=== PATIENT | female | born 1980 | race Caucasian/White ===

== ENCOUNTER 2016-05-28 15:05 | Emergency (ER) | payer BC ==
[2016-05-28 15:31] VITALS: RESP 18
[2016-05-28] MEDS ORDERED: FAMOTIDINE 20 MG/2 ML VIAL IV STA (15:46)
[2016-05-28] MEDS ORDERED: SODIUM CHLORIDE 0.9% 1,000 ML IV STA (15:46)
[2016-05-28] MEDS ORDERED: ONDANSETRON 4 MG/2 ML VIAL IVP STA (15:46)
--- NOTE | 2016-05-28 15:48 | ED ---
General Adult HPI - General Chief complaint: Abdominal Pain Stated complaint: left side abdominal pain Time Seen by Provider: 05/28/16 15:40 Source: patient, RN notes reviewed Mode of arrival: ambulatory Limitations: no limitations - History of Present Illness Initial comments: Patient a 35-year-old female who presents emergency room today with a chief complaint of left upper quadrant pain 2 weeks. She describes it as a sharp type pain located left upper quadrant that is worse after eating. States worse when she lays down. Patient does admit to a history of cholecystectomy. Admits to nausea. She denies any other complaints associated symptoms. Patient denies any recent fever, chills, shortness of breath, chest pain, back pain, vomiting, numbness or tingling, dysuria or hematuria, constipation or diarrhea, headaches or visual changes, or any other complaints. - Related Data Home Medications Medication Instructions Recorded Confirmed Ibuprofen [Motrin] 800 mg PO Q8HR PRN 02/28/15 05/28/16 clonazePAM [KlonoPIN] 1 mg PO DAILY PRN 02/28/15 05/28/16 Estradiol [Estrace] 1 mg PO DAILY 05/28/16 05/28/16 HYDROcodone/APAP 5-325MG [[place] 1 tab PO DAILY PRN 05/28/16 05/28/16 5-325] Previous Rx's Medication Instructions Recorded Omeprazole 20 mg PO DAILY 14 Days 05/28/16 Allergies Allergy/AdvReac Type Severity Reaction Status Date / Time adhesive AdvReac Rash/Hives Verified 05/28/16 15:38 Anesthetics - Katie Type- AdvReac Itching Verified 05/28/16 15:38 Parabens [Anesthetics - Katie Type] diclofenac sodium AdvReac Rash/Hives Verified 05/28/16 15:38 [From Voltaren] erythromycin lactobionate AdvReac Rash/Hives Verified 05/28/16 15:38 [From Erythrocin] Iodinated Contrast Media - AdvReac Rash/Hives Verified 05/28/16 15:38 Oral and [Iodinated Contrast Media - IV Dye] Review of Systems ROS Statement: Those systems with pertinent positive or pertinent negative responses have been documented in the HPI. ROS Other: All systems not noted in ROS Statement are negative. Past Medical History Past Medical History: Fibromyalgia History of Any Multi-Drug Resistant Organisms: None Reported Past Surgical History: Cholecystectomy, Hysterectomy, Orthopedic Surgery Additional Past Surgical History / Comment(s): right shoulder, right foot, left Oopherectomy, left shoulder Past Anesthesia/Blood Transfusion Reactions: No Reported Reaction Past Psychological History: Anxiety Smoking Status: Former smoker Past Alcohol Use History: None Reported Past Drug Use History: None Reported - Past Family History Mother Family Medical History: No Reported History General Exam - General Exam Comments Initial Comments: General: The patient is awake and alert, in no distress, and does not appear acutely ill. Eye: Pupils are equal, round and reactive to light, extra-ocular movements are intact. No nystagmus. There is normal conjunctiva bilaterally. No signs of icterus. Ears, nose, mouth and throat: There are moist mucous membranes and no oral lesions. Neck: The neck is supple, there is no tenderness or JVD. Cardiovascular: There is a regular rate and rhythm. No murmur, rub or gallop is appreciated. Respiratory: Lungs are clear to auscultation, respirations are non-labored, breath sounds are equal. No wheezes, stridor, rales, or rhonchi. Gastrointestinal: Normal exam. Normal bowel sounds. Abdomen soft on palpation. Patient does have mild tenderness in the epigastric and left upper quadrants. No rebound tenderness. No guarding. No CVA tenderness. Musculoskeletal: Normal ROM, no tenderness. Strength 5/5. Sensation intact. Pulses equal bilaterally 2+. Neurological: A&O x 3. CN II-XII intact, There are no obvious motor or sensory deficits. Coordination appears grossly intact. Speech is normal. Skin: Skin is warm and dry and no rashes or lesions are noted. Psychiatric: Cooperative, appropriate mood & affect, normal judgment. Limitations: no limitations Course Vital Signs 05/28/16 15:26 Temperature 98.0 F Pulse Rate 74 Respiratory 18 Rate Blood Pressure 97/73 O2 Sat by Pulse 100 Oximetry Medical Decision Making - Medical Decision Making Patient's labs reviewed and are unremarkable. Results were discussed with the patient. She declined IV in IV medications. Patient will be discharged home and advised to follow-up with the family doctor. She'll be started on omeprazole to cover for possible ulcer. Signs and symptoms of return were discussed with the patient. Advised follow-up the family doctor or return if any symptoms increase or worsen. Patient states understanding and is in agreement. - Lab Data Result diagrams: 05/28/16 15:53 05/28/16 15:53 Lab Results 05/28/16 05/28/16 05/28/16 Range/Units 15:53 15:53 15:59 WBC 6.2 (3.8-10.6) k/uL RBC 4.66 (3.80-5.40) m/uL Hgb 13.9 (11.4-16.0) gm/dL Hct 43.1 (34.0-46.0) % MCV 92.4 (80.0-100.0) fL MCH 29.7 (25.0-35.0) pg MCHC 32.2 (31.0-37.0) g/dL RDW 12.0 (11.5-15.5) % Plt Count 210 (150-450) k/uL Neutrophils % 51 % Lymphocytes % 39 % Monocytes % 5 % Eosinophils % 2 % Basophils % 1 % Neutrophils # 3.1 (1.3-7.7) k/uL Lymphocytes # 2.4 (1.0-4.8) k/uL Monocytes # 0.3 (0-1.0) k/uL Eosinophils # 0.1 (0-0.7) k/uL Basophils # 0.0 (0-0.2) k/uL Sodium 141 (137-145) mmol/L Potassium 4.1 (3.5-5.1) mmol/L Chloride 106 (98-107) mmol/L Carbon Dioxide 24 (22-30) mmol/L Anion Gap 11 mmol/L BUN 12 (7-17) mg/dL Creatinine 0.74 (0.52-1.04) mg/dL Est GFR (MDRD) Af Amer >60 (>60 ml/min/1.73 sqM) Est GFR (MDRD) Non-Af >60 (>60 ml/min/1.73 sqM) Glucose 91 (74-99) mg/dL Calcium 9.1 (8.4-10.2) mg/dL Total Bilirubin 0.5 (0.2-1.3) mg/dL AST 17 (14-36) U/L ALT 32 (9-52) U/L Alkaline Phosphatase 69 (38-126) U/L Total Protein 7.3 (6.3-8.2) g/dL Albumin 4.3 (3.5-5.0) g/dL Amylase 67 (30-110) U/L Lipase 67 (23-300) U/L Urine Color Urine Appearance (Clear) Urine pH (5.0-8.0) Ur Specific [place] (1.001-1.035) Urine Protein (Negative) Urine Glucose (UA) (Negative) Urine Ketones (Negative) Urine Blood (Negative) Urine Nitrate (Negative) Urine Bilirubin (Negative) Urine Urobilinogen (<2.0) mg/dL Ur Leukocyte Esterase (Negative) Urine RBC (0-5) /hpf Urine WBC (0-5) /hpf Ur Squamous Epith Cells (0-4) /hpf Urine Bacteria (None) /hpf Urine Mucus (None) /hpf Urine HCG, Qual Not Detected (Not Detectd) 05/28/16 Range/Units 15:59 WBC (3.8-10.6) k/uL RBC (3.80-5.40) m/uL Hgb (11.4-16.0) gm/dL Hct (34.0-46.0) % MCV (80.0-100.0) fL MCH (25.0-35.0) pg MCHC (31.0-37.0) g/dL RDW (11.5-15.5) % Plt Count (150-450) k/uL Neutrophils % % Lymphocytes % % Monocytes % % Eosinophils % % Basophils % % Neutrophils # (1.3-7.7) k/uL Lymphocytes # (1.0-4.8) k/uL Monocytes # (0-1.0) k/uL Eosinophils # (0-0.7) k/uL Basophils # (0-0.2) k/uL Sodium (137-145) mmol/L Potassium (3.5-5.1) mmol/L Chloride (98-107) mmol/L Carbon Dioxide (22-30) mmol/L Anion Gap mmol/L BUN (7-17) mg/dL Creatinine (0.52-1.04) mg/dL Est GFR (MDRD) Af Amer (>60 ml/min/1.73 sqM) Est GFR (MDRD) Non-Af (>60 ml/min/1.73 sqM) Glucose (74-99) mg/dL Calcium (8.4-10.2) mg/dL Total Bilirubin (0.2-1.3) mg/dL AST (14-36) U/L ALT (9-52) U/L Alkaline Phosphatase (38-126) U/L Total Protein (6.3-8.2) g/dL Albumin (3.5-5.0) g/dL Amylase (30-110) U/L Lipase (23-300) U/L Urine Color Yellow Urine Appearance Cloudy H (Clear) Urine pH 5.5 (5.0-8.0) Ur Specific [place] 1.018 (1.001-1.035) Urine Protein Negative (Negative) Urine Glucose (UA) Negative (Negative) Urine Ketones Negative (Negative) Urine Blood Trace H (Negative) Urine Nitrate Negative (Negative) Urine Bilirubin Negative (Negative) Urine Urobilinogen <2.0 (<2.0) mg/dL Ur Leukocyte Esterase Negative (Negative) Urine RBC 1 (0-5) /hpf Urine WBC 1 (0-5) /hpf Ur Squamous Epith Cells 9 H (0-4) /hpf Urine Bacteria Rare H (None) /hpf Urine Mucus Few H (None) /hpf Urine HCG, Qual (Not Detectd) Disposition Clinical Impression: Abdominal pain Disposition: HOME SELF-CARE Condition: Good Instructions: Abdominal Pain (ED) Additional Instructions: Please use medication as discussed. Please follow-up with family doctor in the next 2 days. Please return to emergency room if the symptoms increase or worsen or for any other concerns. Prescriptions: Omeprazole 20 mg PO DAILY 14 Days Time of Disposition: 16:24
[2016-05-28 16:07] LABS: Basophils % (A) 1 %; CH 31.2; CHCM 33.9; Eosinophils # (A) 0.1 k/uL (0-0.7); Eosinophils % (A) 2 %; HCT 43.1 % (34.0-46.0); HDW 2.49; HGB 13.9 gm/dL (11.4-16.0); Luc # (Auto) 0.12; Luc % (Auto) 2; Lymphocytes # (A) 2.4 k/uL (1.0-4.8); Lymphocytes % (A) 39 %; MCH 29.7 pg (25.0-35.0); MCHC 32.2 g/dL (31.0-37.0); MCV 92.4 fL (80.0-100.0); Monocytes # (A) 0.3 k/uL (0-1.0); Monocytes % (A) 5 %; Neutrophils # (A) 3.1 k/uL (1.3-7.7); Neutrophils % (A) 51 %; RBC 4.66 m/uL (3.80-5.40); WBC 6.2 k/uL (3.8-10.6)
[2016-05-28 16:11] LABS: Appearance,Urine Cloudy (Clear); Bacteria,Urine Rare /hpf; Bilirubin,Urine Negative (Negative); Glucose,Urine (UA) Negative (Negative); Ketones,Urine Negative (Negative); Leukocyte Esterase,Urine Negative (Negative); Mucus,Urine Few /hpf; Nitrite,Urine Negative (Negative); PH, Urine 5.5 (5.0-8.0); Particle Count 8127; Protein,Urine Negative (Negative); RBC,Urine 1 /hpf (0-5); Specific Gravity,Urine 1.018 (1.001-1.035); Squamous Epithelial Cell,Urine 9 /hpf (0-4); UA Billing (MACRO vs. MICRO) MICRO; Urobilinogen,Urine <2.0 mg/dL (<2.0); WBC,Urine 1 /hpf (0-5)
[2016-05-28 16:17] LABS: ALT 32 U/L (9-52); AST 17 U/L (14-36); Alkaline Phosphatase 69 U/L (38-126); Amylase 67 U/L (30-110); Anion Gap 11 mmol/L; Blood Urea Nitrogen 12 mg/dL (7-17); Calcium 9.1 mg/dL (8.4-10.2); Carbon Dioxide 24 mmol/L (22-30); Chloride 106 mmol/L (98-107); Glucose 91 mg/dL (74-99); Non-African American GFR(MDRD) >60 (>60 ml/min/1.73 sqM); Potassium 4.1 mmol/L (3.5-5.1); Sodium 141 mmol/L (137-145); Total Bilirubin 0.5 mg/dL (0.2-1.3); Total Protein 7.3 g/dL (6.3-8.2)
[2016-05-28 16:37] VITALS: BP 119/77; PULSE 61; TEMP 98.1
== END 2016-05-28 16:36 | disposition home or self-care (01) ==
LOC: EC 15:05
DX: R10.32 Left lower quadrant pain (principal); Z87.891 Personal history of nicotine dependence; Z88.8 Allergy status to other drugs, medicaments and biological substances; Z88.4 Allergy status to anesthetic agent; Z88.1 Allergy status to other antibiotic agents; Z91.041 Radiographic dye allergy status; Z79.899 Other long term (current) drug therapy; Z90.49 Acquired absence of other specified parts of digestive tract
CPT/HCPCS: 36415; 80053; 81001; 81025; 82150; 83690; 85025; 99284

== ENCOUNTER 2016-06-26 22:28 | Emergency (ER) | payer BC ==
[2016-06-26 22:34] VITALS: TEMP 98.8
--- NOTE | 2016-06-26 23:54 | ED ---
General Adult HPI - General Chief complaint: Upper Respiratory Infection Stated complaint: congestion/fever Time Seen by Provider: 06/26/16 23:30 Source: patient, RN notes reviewed Mode of arrival: ambulatory Limitations: no limitations - History of Present Illness Initial comments: Chief complaint and history of present illness a 35-year-old female reports that she's had aches and pains and cough increasing over the past 2 days. She was placed on amoxicillin 1 week ago for him cough but she developed a fever and muscle aches and pains cyst yesterday. No nausea no vomiting no diarrhea - Related Data Home Medications Medication Instructions Recorded Confirmed Ibuprofen [Motrin] 800 mg PO Q8HR PRN 02/28/15 06/26/16 clonazePAM [KlonoPIN] 1 mg PO HS 02/28/15 06/26/16 Acetaminophen-Codeine 300-30mg 1 tab PO Q8H PRN 06/26/16 06/26/16 [Tylenol #3] Albuterol Inhaler [Ventolin Hfa 2 puff INHALATION RT-Q6H PRN 06/26/16 06/26/16 Inhaler] Estradiol [Estrace] 2 mg PO HS 06/26/16 06/26/16 Previous Rx's Medication Instructions Recorded Amoxicillin/Potassium Clav 1 each PO Q12HR #20 tab 06/27/16 [Augmentin 875-125 Tablet] Oseltamivir [Tamiflu] 75 mg PO Q12HR #10 cap 06/27/16 Allergies Allergy/AdvReac Type Severity Reaction Status Date / Time adhesive Allergy Rash/Hives Verified 06/26/16 23:18 Anesthetics - Katie Type- Allergy Itching Verified 06/26/16 23:18 Parabens [Anesthetics - Katie Type] diclofenac sodium Allergy Rash/Hives Verified 06/26/16 23:18 [From Voltaren] erythromycin lactobionate Allergy Rash/Hives Verified 06/26/16 23:18 [From Erythrocin] Iodinated Contrast Media - Allergy Rash/Hives Verified 06/26/16 23:18 Oral and [Iodinated Contrast Media - IV Dye] Review of Systems ROS Statement: Those systems with pertinent positive or pertinent negative responses have been documented in the HPI. Review of systems. Minimal headache no visual acuity changes no sore throat. Productive sounding cough. Muscle aches and pains to all the joints. Minimal chest pain with coughing. No nausea no vomiting no diarrhea. No rashes. All systems were reviewed. Past medical problems significant for fibromyalgia, surgeries cholecystectomy, hysterectomy, foot surgery, right shoulder and left shoulder surgeries. Asians family history significant for grandmother with colon cancer. Patient was told to get a colonoscopy a regular basis and she is discharged to discuss this with her family doctor. Patient's denies smoking drinks alcohol rarely socially. ROS Other: All systems not noted in ROS Statement are negative. Past Medical History Past Medical History: Fibromyalgia History of Any Multi-Drug Resistant Organisms: None Reported Past Surgical History: Cholecystectomy, Hysterectomy, Orthopedic Surgery Additional Past Surgical History / Comment(s): right shoulder, right foot, left Oopherectomy, left shoulder Past Anesthesia/Blood Transfusion Reactions: No Reported Reaction Past Psychological History: Anxiety, Panic Disorder Smoking Status: Former smoker Past Alcohol Use History: None Reported Past Drug Use History: None Reported - Past Family History Mother Family Medical History: No Reported History General Exam - General Exam Comments Initial Comments: General: The patient is awake and alert, with a chief complaint of aches and pains and productive sounding cough. Vital signs show temperature 98.8 pulse 86 respiratory rate 20 pulse ox 95% room air blood pressure 116/63. Eye: Pupils are equal, round and reactive to light, extra-ocular movements are intact ; there is normal conjunctiva bilaterally. No signs of icterus. Ears, nose, mouth and throat: There are moist mucous membranes and no oral lesions. Neck: The neck is supple, there is no tenderness , no anterior cervical lymphadenopathy. Cardiovascular: There is a regular rate and rhythm. No murmur, rub or gallop is appreciated. Respiratory: Lungs are clear to auscultation, respirations are non-labored, breath sounds are equal. No wheezes, stridor, rales, or rhonchi. Productive sounding cough Gastrointestinal: No nausea vomiting or diarrhea, no abdominal pain. Back: There is no tenderness to palpation in the midline. Musculoskeletal: 2 days of musculoskeletal pain on again off again fever. Neurological: No complaint of any numbness tingling or neuro deficits. Skin: Skin is warm and dry and no rashes or lesions are noted. Limitations: no limitations Course Vital Signs 06/26/16 22:33 Temperature 98.8 F Pulse Rate 86 Respiratory 20 Rate Blood Pressure 116/63 O2 Sat by Pulse 95 Oximetry Medical Decision Making - Medical Decision Making Labs show the patient's positive for influenza B. Chest x-ray is done AP and lateral views. I reviewed the films. No evidence of a pneumothorax or pleural effusion. No evidence of any consolidation. Bony structures appear to be within normal limits. Heart size normal limits. Awaiting radiologist's final impression. Dr. Michelle The patient will be started on Tamiflu starting this evening 75 mg twice a day. She'll also be switched to Augmentin - Lab Data Lab Results 06/27/16 Range/Units 00:01 Influenza Type A RNA Not Detected (Not Detectd) Influenza Type B (PCR) Detected H (Not Detectd) Disposition Clinical Impression: Influenza B, Bronchitis Disposition: HOME SELF-CARE Condition: Stable Instructions: Influenza (ED) Additional Instructions: Take Tamiflu one tablet twice day for 5 days. Take Augmentin one tablet twice a day for 8 days. Increase fluids use Tylenol or ibuprofen for pain or fever. Prescriptions: Amoxicillin/Potassium Clav [Augmentin 875-125 Tablet] 1 each PO Q12HR #20 tab Oseltamivir [Tamiflu] 75 mg PO Q12HR #10 cap Time of Disposition: 00:37
[2016-06-27] MEDS ORDERED: AMOXIC-POT CLAV 875-125MG 1 EACH TAB PO STA (00:34)
[2016-06-27] MEDS ORDERED: OSELTAMIVIR 75 MG CAP PO STA (00:34)
--- NOTE | 2016-06-27 00:40 | XR ---
EXAMINATION TYPE: XR chest 2V DATE OF EXAM: 06/27/2016 12:26 AM COMPARISON: 05/01/2016 HISTORY: Cough and congestion TECHNIQUE: Frontal and lateral views of the chest are obtained. FINDINGS: Heart and mediastinum are normal. Lungs are clear. Diaphragm is normal. Bony thorax is int act. IMPRESSION: Normal chest. No change.
[2016-06-27 00:49] VITALS: BP 124/77; PULSE 89; RESP 16
== END 2016-06-27 00:49 | disposition home or self-care (01) ==
LOC: EC 22:28
DX: J40 Bronchitis, not specified as acute or chronic (principal); J10.1 Influenza due to other identified influenza virus with other respiratory manifestations; F41.0 Panic disorder [episodic paroxysmal anxiety]; Z88.4 Allergy status to anesthetic agent; Z88.8 Allergy status to other drugs, medicaments and biological substances; Z91.041 Radiographic dye allergy status; Z87.891 Personal history of nicotine dependence; Z91.048 Other nonmedicinal substance allergy status; Z79.899 Other long term (current) drug therapy
CPT/HCPCS: 71020; 87502; 99283

== ENCOUNTER → 2016-08-22 | Outpatient (CLI) | payer BC ==
--- NOTE | 2016-08-22 15:10 | CT ---
EXAMINATION TYPE: CT sinus wo con DATE OF EXAM: 08/22/2016 2:54 PM COMPARISON: NONE HISTORY: Chronic sinusitis CT DLP: 580 mGycm Automated exposure control for dose reduction was used. FINDINGS: Visualized intracranial structures are normal. Soft tissues appear normal. There is minimal mucoperiosteal thickening involving the maxillary sinuses. Both infundibula are red nt. There is no bony destruction or expansion. The mastoid air cells are clear. IMPRESSION: MILD, CHRONIC MUCOPERIOSTEAL THICKENING INVOLVING THE MAXILLARY SINUSES BILATERALLY.
== END | disposition home or self-care (01) ==
LOC: RADCTMAIN 14:34
PROVIDERS: ATTEND Otolaryngology
DX: J32.0 Chronic maxillary sinusitis (principal)
CPT/HCPCS: 70486

== ENCOUNTER 2016-09-06 05:13 | Emergency (ER) | payer BC ==
[2016-09-06 05:17] VITALS: BP 130/78; PULSE 93; RESP 18; TEMP 97.8
--- NOTE | 2016-09-06 05:33 | ED ---
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 She states she thought after having a long weekend off it would help the pain and hasn't she complains of moderate pain to her medial and lateral aspects her elbow as well as pain radiating down from her neck and shoulder. She denies any injury. She does do a lot of repetitive movement and with heavy equipment and parts. MD Complaint: Injury to:: right, arm, elbow - Related Data Home Medications Medication Instructions Recorded Confirmed Ibuprofen [Motrin] 800 mg PO Q8HR PRN 02/28/15 06/26/16 clonazePAM [KlonoPIN] 1 mg PO HS 02/28/15 06/26/16 Acetaminophen-Codeine 300-30mg 1 tab PO Q8H PRN 06/26/16 06/26/16 [Tylenol #3] Albuterol Inhaler [Ventolin Hfa 2 puff INHALATION RT-Q6H PRN 06/26/16 06/26/16 Inhaler] Estradiol [Estrace] 2 mg PO HS 06/26/16 06/26/16 Previous Rx's Medication Instructions Recorded Amoxicillin/Potassium Clav 1 each PO Q12HR #20 tab 06/27/16 [Augmentin 875-125 Tablet] Oseltamivir [Tamiflu] 75 mg PO Q12HR #10 cap 06/27/16 Cyclobenzaprine [Flexeril] 10 mg PO TID #14 tab 09/06/16 Ketorolac [Toradol] 10 mg PO Q6HR #20 tab 09/06/16 Allergies Allergy/AdvReac Type Severity Reaction Status Date / Time adhesive Allergy Rash/Hives Verified 09/06/16 05:18 Anesthetics - Katie Type- Allergy Itching Verified 09/06/16 05:18 Parabens [Anesthetics - [place] Type] diclofenac [From Voltaren] Allergy Rash/Hives Verified 09/06/16 05:18 diclofenac sodium Allergy Rash/Hives Verified 09/06/16 05:18 [From Voltaren] erythromycin lactobionate Allergy Rash/Hives Verified 09/06/16 05:18 [From Erythrocin] Iodinated Contrast Media - Allergy Rash/Hives Verified 09/06/16 05:18 Oral and [Iodinated Contrast Media - IV Dye] Review of Systems ROS Statement: Those systems with pertinent positive or pertinent negative responses have been documented in the HPI. ROS Other: All systems not noted in ROS Statement are negative. Past Medical History Past Medical History: Fibromyalgia History of Any Multi-Drug Resistant Organisms: None Reported Past Surgical History: Cholecystectomy, Hysterectomy, Orthopedic Surgery Additional Past Surgical History / Comment(s): right shoulder, right foot, left Oopherectomy, left shoulder Past Anesthesia/Blood Transfusion Reactions: No Reported Reaction Past Psychological History: Anxiety, Panic Disorder Smoking Status: Former smoker Past Alcohol Use History: None Reported Past Drug Use History: None Reported - Past Family History Mother Family Medical History: No Reported History General Exam - General Exam Comments Initial Comments: This is a well-developed well-nourished awake alert oriented x3 female Limitations: no limitations General appearance: alert, in no apparent distress Head exam: Present: atraumatic, normocephalic, normal inspection Neck exam: Present: tenderness, full ROM (Tenderness palpation of the right trapezius musculature no spinous process tenderness however.) Respiratory exam: Present: normal lung sounds bilaterally. Absent: respiratory distress, wheezes, rales, rhonchi, stridor Cardiovascular Exam: Present: regular rate, normal rhythm, normal heart sounds. Absent: systolic murmur, diastolic murmur, rubs, gallop, clicks Extremities exam: Present: normal inspection, full ROM, tenderness, normal capillary refill, other (Tenderness palpation of the medial and lateral epicondyles. No tenderness to percussion over the median nerve.) Neurological exam: Present: alert Psychiatric exam: Present: normal affect, normal mood Skin exam: Present: warm, dry, intact, normal color. Absent: rash Course Vital Signs 09/06/16 05:15 Temperature 97.8 F Pulse Rate 93 Respiratory 18 Rate Blood Pressure 130/78 O2 Sat by Pulse 99 Oximetry - Reevaluation(s) Reevaluation #1: 09/06/16 05:34 The patient does state that she cannot take Voltaren but has taken Toradol with no problems ever. Medical Decision Making - Medical Decision Making Patient will be discharged to follow-up with her orthopedist as planned in 2 days. She'll be given a note for work. Disposition Clinical Impression: Cervical radiculopathy, Epicondylitis syndrome of elbow Disposition: HOME SELF-CARE Condition: Good Instructions: Tennis Elbow (ED), Cervical Radiculopathy (ED) Prescriptions: Cyclobenzaprine [Flexeril] 10 mg PO TID #14 tab Ketorolac [Toradol] 10 mg PO Q6HR #20 tab
[2016-09-06] MEDS ORDERED: KETOROLAC 60 MG/2 ML VIAL IM STA (05:34)
== END 2016-09-06 06:00 | disposition home or self-care (01) ==
LOC: EC 05:13
DX: M77.01 Medial epicondylitis, right elbow (principal); M77.11 Lateral epicondylitis, right elbow; M54.12 Radiculopathy, cervical region; S49.91XA Unspecified injury of right shoulder and upper arm, initial encounter; F41.0 Panic disorder [episodic paroxysmal anxiety]; Z87.891 Personal history of nicotine dependence; Z79.3 Long term (current) use of hormonal contraceptives; Z79.899 Other long term (current) drug therapy; Z88.1 Allergy status to other antibiotic agents; Z88.4 Allergy status to anesthetic agent; Z88.6 Allergy status to analgesic agent; Z91.041 Radiographic dye allergy status; Z91.09 Other allergy status, other than to drugs and biological substances; Z98.890 Other specified postprocedural states; X50.3XXA Overexertion from repetitive movements, initial encounter; Y92.63 Factory as the place of occurrence of the external cause; Y99.0 Civilian activity done for income or pay
CPT/HCPCS: 99283; 96372; J1885

== ENCOUNTER 2016-12-20 05:23 | Emergency (ER) | payer BC, OTHER ==
--- NOTE | 2016-12-20 05:50 | ED ---
Neck Injury/Pain HPI - General Chief Complaint: Neck Pain/Injury Stated Complaint: left side pain Time Seen by Provider: 12/20/16 05:42 Mode of arrival: ambulatory Limitations: no limitations - History of Present Illness Initial Comments: This patient is a 36-year-old woman who presents to be evaluated for left neck and left arm pain. The patient believes that it may be related to fall that she had on the weekend. She states that she had fallen off her horse. She did not have much pain at the time, but when she got up this morning she noticed that her upper arm was feeling stiff and that if she attempts to raise it she had some pain. She denies weakness or numbness. No other injuries. MD Complaint: neck pain -: days(s) Place: street/outdoors Radiation: left upper extremity Severity: moderate Quality: aching Consistency: constant Improves With: none Worsens With: movement of extremity Context: fall Associated Symptoms: none Treatments Prior to Arrival: prescription pain med (Tramadol) - Related Data Home Medications Medication Instructions Recorded Confirmed Ibuprofen [Motrin] 800 mg PO Q8HR PRN 02/28/15 06/26/16 clonazePAM [KlonoPIN] 1 mg PO HS 02/28/15 06/26/16 Acetaminophen-Codeine 300-30mg 1 tab PO Q8H PRN 06/26/16 06/26/16 [Tylenol #3] Albuterol Inhaler [Ventolin Hfa 2 puff INHALATION RT-Q6H PRN 06/26/16 06/26/16 Inhaler] Estradiol [Estrace] 2 mg PO HS 06/26/16 06/26/16 Previous Rx's Medication Instructions Recorded Amoxicillin/Potassium Clav 1 each PO Q12HR #20 tab 06/27/16 [Augmentin 875-125 Tablet] Oseltamivir [Tamiflu] 75 mg PO Q12HR #10 cap 06/27/16 Cyclobenzaprine [Flexeril] 10 mg PO TID #14 tab 09/06/16 Ketorolac [Toradol] 10 mg PO Q6HR #20 tab 09/06/16 Methocarbamol [Robaxin-750] 750 mg PO TID PRN #30 tablet 12/20/16 Allergies Allergy/AdvReac Type Severity Reaction Status Date / Time adhesive Allergy Rash/Hives Verified 12/20/16 05:29 Anesthetics - Katie Type- Allergy Itching Verified 12/20/16 05:29 Parabens [Anesthetics - Katie Type] diclofenac [From Voltaren] Allergy Rash/Hives Verified 12/20/16 05:29 diclofenac sodium Allergy Rash/Hives Verified 12/20/16 05:29 [From Voltaren] erythromycin lactobionate Allergy Rash/Hives Verified 12/20/16 05:29 [From Erythrocin] Iodinated Contrast- Oral and Allergy Rash/Hives Verified 12/20/16 05:29 IV Dye [Iodinated Contrast Media - IV Dye] Review of Systems ROS Statement: Those systems with pertinent positive or pertinent negative responses have been documented in the HPI. ROS Other: All systems not noted in ROS Statement are negative. Constitutional: Denies: fever, chills, weakness Cardiovascular: Denies: chest pain, palpitations, edema, syncope Gastrointestinal: Denies: abdominal pain, nausea, vomiting Musculoskeletal: Reports: as per HPI. Denies: back pain Skin: Denies: rash Neurological: Denies: headache, weakness, numbness, paresthesias Past Medical History Past Medical History: Fibromyalgia History of Any Multi-Drug Resistant Organisms: None Reported Past Surgical History: Cholecystectomy, Hysterectomy, Orthopedic Surgery Additional Past Surgical History / Comment(s): right shoulder, right foot, left Oopherectomy, left shoulder Past Anesthesia/Blood Transfusion Reactions: No Reported Reaction Past Psychological History: Anxiety, Panic Disorder Smoking Status: Former smoker Past Alcohol Use History: None Reported Past Drug Use History: None Reported - Past Family History Mother Family Medical History: No Reported History General Exam Limitations: no limitations General appearance: alert, in no apparent distress Head exam: Present: atraumatic, normocephalic Neck exam: Present: normal inspection, tenderness, full ROM Respiratory exam: Present: normal lung sounds bilaterally. Absent: respiratory distress, wheezes, rales, rhonchi, stridor Cardiovascular Exam: Present: regular rate, normal rhythm, normal heart sounds. Absent: systolic murmur, diastolic murmur, rubs, gallop GI/Abdominal exam: Present: soft. Absent: distended, tenderness, guarding Extremities exam: Present: normal inspection, full ROM, tenderness, normal capillary refill. Absent: joint swelling Neurological exam: Present: alert, oriented X3. Absent: motor sensory deficit Skin exam: Present: warm, dry, intact, normal color. Absent: rash Course Vital Signs 12/20/16 05:27 Temperature 97.7 F Pulse Rate 76 Respiratory 18 Rate Blood Pressure 108/53 O2 Sat by Pulse 97 Oximetry Disposition Clinical Impression: Muscle strain Disposition: HOME SELF-CARE Condition: Good Instructions: Cervical Strain (ED) Prescriptions: Methocarbamol [Robaxin-750] 750 mg PO TID PRN #30 tablet PRN Reason: pain Referrals: Tracy Arreguin MD [Primary Care Provider] - 1-2 days
--- NOTE | 2016-12-20 06:37 | CT ---
EXAM: CT Cervical Spine Without Intravenous Contrast. CLINICAL HISTORY: Reason: Pain TECHNIQUE: Axial computed tomography images of the cervical spine without intravenous contrast. CTDI is 21.1 mGy and DLP is 354.4 mGy-cm. This CT exam was performed using one or more of the following dose reduction techniques: automated exposure control, adjustment of the mA and/or kV according to patient size, and/or use of iterative reconstruction technique. COMPARISON: No relevant prior studies available. FINDINGS: Vertebrae: Unremarkable. No acute fracture. Discs/spinal canal/neural foramina: No acute findings. No spinal canal stenosis. Soft tissues: Unremarkable. Lung apices: Unremarkable as visualized. IMPRESSION: Normal cervical spine.
[2016-12-20 07:09] VITALS: BP 111/56; PULSE 58; RESP 20; TEMP 97.1
== END 2016-12-20 07:09 | disposition home or self-care (01) ==
LOC: EC 05:23
DX: S16.1XXA Strain of muscle, fascia and tendon at neck level, initial encounter (principal); S46.912A Strain of unspecified muscle, fascia and tendon at shoulder and upper arm level, left arm, initial encounter; F41.9 Anxiety disorder, unspecified; Z87.891 Personal history of nicotine dependence; Z79.899 Other long term (current) drug therapy; Z88.1 Allergy status to other antibiotic agents; Z88.4 Allergy status to anesthetic agent; Z88.6 Allergy status to analgesic agent; Z91.041 Radiographic dye allergy status; Z91.048 Other nonmedicinal substance allergy status; V80.010A Animal-rider injured by fall from or being thrown from horse in noncollision accident, initial encounter
CPT/HCPCS: 72125; 99283

== ENCOUNTER 2018-03-16 10:31 | Emergency (ER) | payer BC, OTHER ==
[2018-03-16 10:45] VITALS: BP 111/75; PULSE 69; RESP 18; TEMP 98.2
--- NOTE | 2018-03-16 11:27 | ED ---
Upper Extremity HPI - General Chief Complaint: Extremity Injury, Upper Stated Complaint: Lt arm injury Time Seen by Provider: 03/16/18 10:57 Source: patient, RN notes reviewed, old records reviewed Mode of arrival: ambulatory Limitations: no limitations - History of Present Illness Initial Comments: 37-year-old female presents emergency department today with chief complaint of left arm pain. Patient reports that she has pain for the past 4 days after lifting a 50 pound bag of chicken feed. Patient states that she felt a pull and pop within her left forearm and elbow. Patient states that she's had some pain with pronation and supination since that time. She denies any falls or other trauma to the arm. She is right-handed. She said previous history of left shoulder surgery due to impingement syndrome. Patient states that she sees orthopedic in her record. Patient states that she could not go to work due to the pain in her left arm today. Denies any chest pain shortness breath. Denies any peripheral paresthesias. - Related Data Home Medications Medication Instructions Recorded Confirmed Ibuprofen [Motrin] 800 mg PO Q8HR PRN 02/28/15 06/26/16 clonazePAM [KlonoPIN] 1 mg PO HS 02/28/15 06/26/16 Acetaminophen-Codeine 300-30mg 1 tab PO Q8H PRN 06/26/16 06/26/16 [Tylenol #3] Albuterol Inhaler [Ventolin Hfa 2 puff INHALATION RT-Q6H PRN 06/26/16 06/26/16 Inhaler] Estradiol [Estrace] 2 mg PO HS 06/26/16 06/26/16 Previous Rx's Medication Instructions Recorded Amoxicillin/Potassium Clav 1 each PO Q12HR #20 tab 06/27/16 [Augmentin 875-125 Tablet] Oseltamivir [Tamiflu] 75 mg PO Q12HR #10 cap 06/27/16 Cyclobenzaprine [Flexeril] 10 mg PO TID #14 tab 09/06/16 Ketorolac [Toradol] 10 mg PO Q6HR #20 tab 09/06/16 Methocarbamol [Robaxin-750] 750 mg PO TID PRN #30 tablet 12/20/16 Ibuprofen 600 mg PO TID #20 tablet 03/16/18 Allergies Allergy/AdvReac Type Severity Reaction Status Date / Time adhesive Allergy Rash/Hives Verified 12/20/16 05:29 Anesthetics - Katie Type- Allergy Itching Verified 12/20/16 05:29 Parabens [Anesthetics - Katie Type] diclofenac [From Voltaren] Allergy Rash/Hives Verified 12/20/16 05:29 diclofenac sodium Allergy Rash/Hives Verified 12/20/16 05:29 [From Voltaren] erythromycin lactobionate Allergy Rash/Hives Verified 12/20/16 05:29 [From Erythrocin] Iodinated Contrast- Oral and Allergy Rash/Hives Verified 12/20/16 05:29 IV Dye [Iodinated Contrast Media - IV Dye] Review of Systems ROS Statement: Those systems with pertinent positive or pertinent negative responses have been documented in the HPI. ROS Other: All systems not noted in ROS Statement are negative. Past Medical History Past Medical History: Fibromyalgia History of Any Multi-Drug Resistant Organisms: None Reported Past Surgical History: Cholecystectomy, Hysterectomy, Orthopedic Surgery Additional Past Surgical History / Comment(s): right shoulder, right foot, left Oopherectomy, left shoulder Past Anesthesia/Blood Transfusion Reactions: No Reported Reaction Past Psychological History: Anxiety, Panic Disorder Smoking Status: Former smoker Past Alcohol Use History: None Reported Past Drug Use History: None Reported - Past Family History Mother Family Medical History: No Reported History General Exam - General Exam Comments Initial Comments: This is a 37-year-old female. Alert and oriented. Patient appears in no acute distress. Limitations: no limitations General appearance: alert, in no apparent distress Head exam: Present: atraumatic, normocephalic, normal inspection Eye exam: Present: normal appearance, PERRL, EOMI. Absent: scleral icterus, conjunctival injection, periorbital swelling ENT exam: Present: normal exam, normal oropharynx, mucous membranes moist Neck exam: Present: normal inspection. Absent: tenderness, meningismus, lymphadenopathy Respiratory exam: Present: normal lung sounds bilaterally. Absent: respiratory distress, wheezes, rales, rhonchi, stridor Cardiovascular Exam: Present: regular rate, normal rhythm, normal heart sounds. Absent: systolic murmur, diastolic murmur, rubs, gallop, clicks GI/Abdominal exam: Present: soft, normal bowel sounds. Absent: distended, guarding, rebound, rigid Extremities exam: Present: normal inspection, full ROM, normal capillary refill. Absent: tenderness, pedal edema, joint swelling, calf tenderness Left Shoulder Exam: Present: normal inspection, full ROM Upper Arm exam: Present: normal inspection, full ROM Elbow exam: Present: normal inspection, full ROM, tenderness (Patient has tenderness over the distal brachial radialis.) Forearm Wrist exam: Present: normal inspection, full ROM Hand Wrist exam: Present: normal inspection, full ROM Neuro motor exam: Present: wrist extension intact, thumb opposition intact, thumb IP flexion intact, thumb adduction intact, fingers 2-5 abduction intact Vascular: Present: normal capillary refill Back exam: Present: normal inspection, full ROM Neurological exam: Present: alert, oriented X3, CN II-XII intact Psychiatric exam: Present: normal affect, normal mood Skin exam: Present: warm, dry, intact, normal color. Absent: rash Course Vital Signs 03/16/18 10:41 Temperature 98.2 F Pulse Rate 69 Respiratory 18 Rate Blood Pressure 111/75 O2 Sat by Pulse 98 Oximetry Medical Decision Making - Medical Decision Making 37-year-old feel to emergently left forearm and elbow pain. Patient reports that occurred actually 50poundbag of chicken feed on Sunday. 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 She has full range of motion.She has normal capillary refill no significant swelling. X-ray of the left elbow was reviewed and negative for any aute process. Discussed most likely a sprain at this time. Patient was placed in an Acewrap and sling. I discussed she can follow-up with commodity management specialist.Requested for work. - Radiology Data Radiology results: report reviewed Normal left elbow. Disposition Clinical Impression: Sprain of left elbow Disposition: HOME SELF-CARE Condition: Good Instructions: Elbow Sprain (ED) Additional Instructions: Patient has to use antiinflammatory medication for pain. Keep arm wrapped in a sling. Follow-up with commodity management specialist. Return to emergency department if any alarming signs or symptoms occur. Anti-inflammatory medication for pain. Prescriptions: Ibuprofen 600 mg PO TID #20 tablet Is patient prescribed a controlled substance at d/c from ED?: No Referrals: Carli Chapin DO [Primary Care Provider] - 1-2 days Time of Disposition: 12:18
--- NOTE | 2018-03-16 12:04 | XR ---
EXAMINATION TYPE: XR elbow complete LT , 3 VIEWS DATE OF EXAM ORDERED: 03/16/2018 HISTORY: Pain. COMPARISON: None. FINDINGS: No fracture, dislocation or joint effusion is seen. IMPRESSION: NO ACUTE OSSEOUS LESION.
== END 2018-03-16 12:33 | disposition home or self-care (01) ==
LOC: EC 10:31
DX: S53.402A Unspecified sprain of left elbow, initial encounter (principal); Z98.890 Other specified postprocedural states; Z87.891 Personal history of nicotine dependence; Z79.818 Long term (current) use of other agents affecting estrogen receptors and estrogen levels; Z79.899 Other long term (current) drug therapy; Z91.048 Other nonmedicinal substance allergy status; Z88.8 Allergy status to other drugs, medicaments and biological substances; Z88.6 Allergy status to analgesic agent; Z88.1 Allergy status to other antibiotic agents; Z91.041 Radiographic dye allergy status; X50.0XXA Overexertion from strenuous movement or load, initial encounter; Y92.009 Unspecified place in unspecified non-institutional (private) residence as the place of occurrence of the external cause
CPT/HCPCS: 99284

== ENCOUNTER → 2019-07-07 | Outpatient (CLI) | payer BC ==
--- NOTE | 2019-07-07 22:36 | MR ---
EXAMINATION TYPE: MR lumbar spine wo con DATE OF EXAM: 07/07/2019 COMPARISON: NONE HISTORY: Low back pain into lt buttocks and right lower extremity TECHNIQUE: T1 and T2 axial and sagittal images of the lumbar spine are submitted. FINDINGS: There is no abnormal signal seen within the visualized spinal cord or paraspinal soft tissu es. Discogenic marrow changes and degenerative disc disease L5-S1. Mild disc desiccation L4-5. 5 mm n odule left adrenal gland appears to have fat signal suggestive of adenoma. At T12-L1 no disc herniation or canal stenosis. No foraminal encroachment. No degenerative disc disea se. At L1-2 there is no disc herniation or canal stenosis. No foraminal encroachment. No degenerative dis c disease. At L2-3 there is no disc herniation or canal stenosis. No foraminal encroachment. No degenerative dis c disease. At L3-4 there is no disc herniation, canal stenosis, foraminal encroachment, or degenerative disc dis ease. At L4-5 there is disc desiccation with broad-based disc bulging. There is hypertrophy of ligamentum f lavum and facet joints and mild canal stenosis. Mild bilateral foraminal encroachment. Diminutive spi nal canal contributes. At L5-S1 there is broad-based right paracentral disc herniation extending laterally to the right mode rate right-sided foraminal encroachment. There is some displacement of the exiting right nerve root. Facet arthropathy noted IMPRESSION: 1. Broad-based right paracentral and lateral disc herniation L5-S1 with displacement of the right ner ve root correlate for radiculopathy at this level. 2. Broad-based disc bulging with hypertrophic changes and diminutive spinal canal at L4-5 results in mild canal stenosis and mild bilateral foraminal encroachment.
== END | disposition home or self-care (01) ==
LOC: RADMRIMAIN 19:47
PROVIDERS: ATTEND Orthopaedic Surgery
DX: M48.061 Spinal stenosis, lumbar region without neurogenic claudication (principal); M51.27 Other intervertebral disc displacement, lumbosacral region; M51.26 Other intervertebral disc displacement, lumbar region
CPT/HCPCS: 72148

== ENCOUNTER → 2019-10-28 | Outpatient (CLI) | payer BC ==
[2019-10-28 13:36] LABS: Appearance,Urine Clear (Clear); Bilirubin,Urine Negative (Negative); Blood,Urine Small (Negative); Color,Urine Yellow; Glucose,Urine (UA) Negative (Negative); Ketones,Urine Negative (Negative); Leukocyte Esterase,Urine Negative (Negative); Mucus,Urine Many /hpf; Nitrite,Urine Negative (Negative); PH, Urine 5.5 (5.0-8.0); Protein,Urine Negative (Negative); RBC,Urine 1 /hpf (0-5); Specific Gravity,Urine 1.018 (1.001-1.035); Squamous Epithelial Cell,Urine <1 /hpf (0-4); Urobilinogen,Urine <2.0 mg/dL (<2.0); WBC,Urine <1 /hpf (0-5)
[2019-10-28 13:42] LABS: Partial Thromboplastin Time 24.6 sec (22.0-30.0); Prothrombin Time 10.2 sec (9.0-12.0)
[2019-10-28 13:49] LABS: Basophils % (A) 1 %; Eosinophils # (A) 0.1 k/uL (0-0.7); Eosinophils % (A) 1 %; HCT 41.9 % (34.0-46.0); Lymphocytes # (A) 3.1 k/uL (1.0-4.8); Lymphocytes % (A) 48 %; MCH 30.2 pg (25.0-35.0); MCHC 33.3 g/dL (31.0-37.0); MCV 90.7 fL (80.0-100.0); Mean Platelet Volume 7.9; Monocytes # (A) 0.3 k/uL (0-1.0); Monocytes % (A) 4 %; Neutrophils # (A) 2.9 k/uL (1.3-7.7); Neutrophils % (A) 45 %; Platelet Count 233 k/uL (150-450); RBC 4.62 m/uL (3.80-5.40); RDW 12.7 % (11.5-15.5); WBC 6.5 k/uL (3.8-10.6)
[2019-10-28 19:39] LABS: African American GFR (CKD) 124.7 (60.0-200.0); Albumin 4.4 g/dL (3.80-4.90); Albumin/Globulin Ratio 1.83 (1.60-3.17); Anion Gap 10.8 mmol/L (4.00-12.00); BUN/Creat Ratio 17.14 Ratio (12.00-20.00); Calcium 9.4 mg/dL (8.7-10.3); Carbon Dioxide 22.2 mmol/L (21.6-31.8); Globulin 2.4 g/dL (1.6-3.3); Non-African American GFR(CKD) 107.6 (60.0-200.0); Potassium 4.2 mmol/L (3.5-5.5); Total Bilirubin 0.3 mg/dL (0.3-1.2); Total Protein 6.8 g/dL (6.2-8.2)
[2019-10-28 20:25] LABS: Hemoglobin A1C 4.7 % (4.0-6.0)
== END | disposition home or self-care (01) ==
LOC: LABWHC1 12:05
PROVIDERS: ATTEND Orthopaedic Surgery
DX: Z01.812 Encounter for preprocedural laboratory examination (principal)
CPT/HCPCS: 36415; 80053; 81001; 83036; 85025; 85610; 85730; 86850; 86900; 86901; 87070; 87086

== ENCOUNTER → 2021-06-27 | Outpatient (CLI) | payer BC ==
--- NOTE | 2021-06-28 10:26 | MM ---
Reason for exam: screening (asymptomatic). History: Family history of breast cancer in maternal grandmother and breast cancer in maternal aunt. Taking estrogen beginning at age 36. Physical Findings: A clinical breast exam by your physician is recommended on an annual basis and results should be correlated with mammographic findings. MG Screening Mammo w CAD Bilateral CC and MLO view(s) were taken. No prior studies available for comparison. The breast tissue is heterogeneously dense. This may lower the sensitivity of mammography. Finding: There is a 5-6 mm circumscribed oval mass located 7 cm from the nipple in the upper outer quadrant, middle position of the left breast. There is a 6-7mm oval, circumscribed lesion posterior inner aspect 12-13cm from the nipple it the right breast. ASSESSMENT: Incomplete: need additional imaging evaluation, BI-RAD 0 RECOMMENDATION: Ultrasound of both breasts. [facility] will attempt to contact patient to return for ultrasound.
== END | disposition home or self-care (01) ==
LOC: RADMAMWWP 09:25
PROVIDERS: ATTEND Family Medicine
DX: Z12.31 Encounter for screening mammogram for malignant neoplasm of breast (principal); Z80.3 Family history of malignant neoplasm of breast
CPT/HCPCS: 77067

== ENCOUNTER → 2021-06-30 | Outpatient (CLI) | payer BC ==
[2021-06-30 18:37] LABS: African American GFR (CKD) 116.6 (60.0-200.0); Anion Gap 12.3 mmol/L (10.00-18.00); BUN/Creat Ratio 14.81 Ratio (12.00-20.00); Blood Urea Nitrogen 10.9 mg/dL (9.0-27.0); Calcium 9.3 mg/dL (8.7-10.3); Carbon Dioxide 20.5 mmol/L (20.0-27.5); Non-African American GFR(CKD) 100.6 (60.0-200.0); Potassium 4.2 mmol/L (3.5-5.5)
[2021-06-30 19:20] LABS: Basophils # (A) 0.04 X 10*3/uL (0.00-0.10); Basophils % (A) 0.5 %; Eosinophils # (A) 0.08 X 10*3/uL (0.04-0.35); Eosinophils % (A) 1.1 %; HCT 45.3 % (37.2-46.3); HGB 14.5 g/dL (12.0-15.0); Immature Grans, Automated 0.4 %; Lymphocytes # (A) 3.18 X 10*3/uL (0.90-5.00); Lymphocytes % (A) 43.2 %; MCH 29.7 pg (27.0-32.0); MCV 92.6 fL (80.0-97.0); Mean Platelet Volume 11.4 fL (9.5-12.2); Monocytes # (A) 0.46 X 10*3/uL (0.20-1.00); Monocytes % (A) 6.3 %; NRBC Per 100 WBC 0 /100 WBCS (0.0-0.0); Neutrophils # (A) 3.57 X 10*3/uL (1.80-7.70); Neutrophils % (A) 48.5 %; Platelet Count 212 X 10*3/uL (140-440); RBC 4.89 X 10*6/uL (4.10-5.20); RDW 13.2 % (11.5-14.5); WBC 7.36 X 10*3/uL (4.50-10.00)
[2021-06-30 19:21] LABS: RBC Morphology NORMAL
== END | disposition home or self-care (01) ==
LOC: LABPAT 11:30
PROVIDERS: ATTEND Orthopaedic Surgery Hand Surgery
DX: Z01.812 Encounter for preprocedural laboratory examination (principal); G56.02 Carpal tunnel syndrome, left upper limb; M65.312 Trigger thumb, left thumb
CPT/HCPCS: 80048; 85025

== ENCOUNTER 2021-07-06 08:46 | Day surgery (SDC) | payer BC ==
[2021-07-04 11:34] VITALS: BMI 30.4
--- NOTE | 2021-07-04 12:32 | P.HPOR ---
History of Present Illness H&P Date: 07/04/21 Chief Complaint: Left carpal tunnel syndrome, left trigger thumb Subjective: This is a 40 year old female that presents today for initial evaluation regarding a 6 month history of left thumb pain and left hand paresthesias involving the thumb index and sometimes middle finger. She has tried a steroid injection for her trigger thumb 4 to 6 months ago and noticed around 4 weeks of relief but her symptoms have returned. 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 She is currently off of work due to her symptoms. She has tried injections and splinting with little relief of her symptoms. She denies any specific injury to the hand. She states her thumb occasionally gets locked in the flexed position. Physical Examination: LUE: AIN/PIN/Radial/Ulnar/Median motor intact. Radial/Ulnar/Median SILT. 2+/4 Radial/Ulnar pulses palpated. 5/5 APB, 5/5 FDI. Negative Finkelsteins, negative CMC grind, Positive Durkan's compression. TTP over A1 noel of thumb with passive flexion/extension. No appreciable locking or fixed flexion contracture. Impression: 1.) Left carpal tunnel syndrome 2.) Left trigger thumb Plan: Diagnosis and treatment options were discussed with the patient. The patient has failed conservative treatment for her left trigger thumb and carpal tunnel syndrome and would like to proceed with surgical intervention. Risks and benefit of surgery including bleeding, infection, damage to surrounding tissue, need for further surgery, possible need to convert to open procedure, residual numbness were discussed and the patient wished to go forward with surgery. She will be scheduled for a left endoscopic carpal tunnel release and left thumb A1 noel release in the near future. 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 -Paul Grier DO Orthopedic Hand/Upper Extremity Surgeon Past Medical History Past Medical History: Asthma, GERD/Reflux Additional Past Medical History / Comment(s): IBS., DDD -HX SPINAL FUSION. History of Any Multi-Drug Resistant Organisms: None Reported Past Surgical History: Back Surgery, Cholecystectomy, Hysterectomy, Orthopedic Surgery Additional Past Surgical History / Comment(s): right shoulder, right foot, left Oopherectomy, left shoulder., BACK FUSION L-4 S-1 WITH HARDWARE., LEFT ELBOW SURGERY. Past Anesthesia/Blood Transfusion Reactions: Previous Problems w/ Anesthesia Additional Past Anesthesia/Blood Transfusion Reaction / Comment(s): STATES SHE TURNED "BEET RED" WITH ANESTHESIA FOR CHOLECYSTECTOMY AT [facility] AND SHE USUALLY RECEIVES A "COCKTAIL" PRIOR TO ANESTHESIA. Past Psychological History: Anxiety, Panic Disorder Smoking Status: Former smoker Past Alcohol Use History: Rare Additional Past Alcohol Use History / Comment(s): QUIT SMOKING 2002, HX OF 1/2 PACK PER WEEK Past Drug Use History: None Reported - Past Family History Mother Family Medical History: Deep Vein Thrombosis (DVT) Medications and Allergies Home Medications Medication Instructions Recorded Confirmed Type Albuterol Inhaler (Mhu) [Ventolin 2 puff INHALATION DIRECTED PRN 06/26/16 07/04/21 History Hfa Inhaler] Estradiol [Estrace] 2 mg PO HS 06/26/16 07/04/21 History Acetaminophen [Tylenol Extra 1,000 mg PO DIRECTED PRN 07/04/21 07/04/21 History Strength] Amitriptyline HCl [Elavil] 10 mg PO HS 07/04/21 07/04/21 History Calcium Carbonate [Tums] 500 mg PO DIRECTED PRN 07/04/21 07/04/21 History Ergocalciferol [Vitamin D2 (1250 1,250 mcg PO DIRECTED 07/04/21 07/04/21 History Mcg = 31919 Iu)] Naproxen 375 mg PO ONCE 07/04/21 07/04/21 History Topiramate [Topamax] 50 mg PO HS 07/04/21 07/04/21 History Allergies Allergy/AdvReac Type Severity Reaction Status Date / Time adhesive Allergy Rash/Hives Verified 07/04/21 11:13 Anesthetics - Katie Type- Allergy Itching Verified 07/04/21 11:13 Parabens [Anesthetics - Katie Type] diclofenac [From Voltaren] Allergy Rash/Hives Verified 07/04/21 11:13 diclofenac sodium Allergy Rash/Hives Verified 07/04/21 11:13 [From Voltaren] erythromycin lactobionate Allergy Rash/Hives Verified 07/04/21 11:13 [From Erythrocin] Iodinated Contrast Media Allergy Rash/Hives Verified 07/04/21 11:13 [Iodinated Contrast Media - IV Dye] Physical Examination Osteopathic Statement: *. No significant issues noted on an osteopathic structural exam other than those noted in the History and Physical/Consult.
[~2021-07-06 08:46] MED LIST: Pre Op ABX Message 1 EACH MISC MISCELLANE ONE
[2021-07-06] MEDS ORDERED: DEXAMETHASONE SOD PHOSPHATE 4 MG/ML 1 ML VIAL IVP ONE (09:36)
[2021-07-06] MEDS ORDERED: LACTATED RINGERS 1,000 ML IV ONE (09:36)
[2021-07-06] MEDS ORDERED: ONDANSETRON 4 MG/2 ML VIAL IVP ONE (09:36)
[2021-07-06] MEDS ORDERED: diphenhydrAMINE 50 MG/ML 1 ML VIAL IVP ONE (09:39)
[2021-07-06] MEDS ORDERED: HYDROCORTISONE SUCCINATE 100 MG/2 ML VIAL IVP ONE (09:39)
[2021-07-06] MEDS ORDERED: ONDANSETRON 4 MG/2 ML VIAL ONE (09:40)
[2021-07-06] MEDS ORDERED: diphenhydrAMINE 50 MG/ML 1 ML VIAL ONE (09:40)
[2021-07-06] MEDS ORDERED: KETAMINE 10 MG/ML 20 ML VIAL ONE (09:43)
[2021-07-06] MEDS ORDERED: PROPOFOL 10 MG/ML 20 ML VIAL IV ONE (09:43)
[2021-07-06] MEDS ORDERED: MIDAZOLAM 2 MG/2 ML VIAL ONE (09:43)
[2021-07-06] MEDS ORDERED: fentaNYL (PF) 50 MCG/ML 2 ML AMP ONE (09:43)
[2021-07-06] MEDS ORDERED: BUPIVACAINE (PF) 0.5% 30 ML VIAL SQ ONE (09:53)
[2021-07-06] MEDS ORDERED: LIDOCAINE 1% INJ 10MG/ML (20 ML MDV) SQ ONE (09:53)
[2021-07-06 10:39] VITALS: TEMP 97
[2021-07-06 11:36] VITALS: BP 112/70; PULSE 70; RESP 18
--- NOTE | 2021-07-06 21:42 | P.OP ---
Date of Procedure: 07/06/21 Preoperative Diagnosis: 1.) Right carpal tunnel syndrome 2.) Right thumb trigger finger Postoperative Diagnosis: 1.) Right carpal tunnel syndrome 2.) Right thumb trigger finger Procedure(s) Performed: 1.) Right endoscopic carpal tunnel release 2.) Right thumb A1 noel release Anesthesia: MAC Surgeon: Paul Grier Estimated Blood Loss (ml): 0 Pathology: none sent Condition: stable Disposition: PACU Description of Procedure: This is a 40 year old female who presents today for a right endoscopic carpal tunnel release and right thumb A1 noel release after having failed conservative treatment in the past. Risks and benefits of surgery were discussed with the patient including bleeding, damage to surrounding tissue, infection, need to convert to open procedure, need for further surgery as well as risks of anesthesia including pulmonary embolism and even and the patient wished to proceed with surgical intervention. The patients was seen in the pre-operative area by myself. Consent and H&P were completed and updated. The correct extremity was marked in the pre-operative area by myself and all other questions were answered. Operative Narrative: The patient was brought to the operating room by the department of anesthesia. They remained on the portable stretcher and a rolling hand table was brought to the side of the operative extremity. Pre-operative time out was performed indicating the correct patient, procedure and laterality. All in the room agreed. The patient was then drifted off to sleep by the department of anesthesia. MAC anesthesia was utilized and a 50:50 mixture of 1% Lidocaine and 0.5% bupivacaine was injected into the subcutaneous tissues of the palmar skin and base of the thumb, 10ccs total. A nonsterile tourniquet was then applied to the operative extremity and the right upper extremity was then prepped and draped in normal sterile fashion. The operative extremity was the exsanguinated with an esmarch bandage and the tourniquet was inflated to 250mmHg. 15 blade scalpel was utilized to make a transverse incision on the palmar skin just ulnar to the palmaris longus tendon at the level of the distal wrist crease. Ragnell retractor was then placed radially and blunt dissection was performed to reveal the distal forearm fascia. This was lifted with fine Reza pick ups and Littler tenotomy scissors were then used to open the forearm fascia transversely and a double skin hook was then placed. Hamate finder was placed into the carpal tunnel and then sequential sized dilators were inserted followed by the synovial elevator to separate the flexor tenosynovium from the undersurface of the transverse carpal ligament and a washboard texture was felt. The MicroAire endoscopic carpal tunnel release system gun was the then inserted into the carpal tunnel hugging the deep portion of the transverse carpal ligament in line with the base of the ring finger. Transverse fibers of the ligament were directly visualized. Pressure was applied on the palm to reveal the distal extent of the transverse carpal ligament. The blade was then deployed and the distal half of the transverse carpal ligament was released. The scope was then brought distal again and remaining transverse fibers were incised with the blade. The proximal half of the transverse carpal ligament was then divided and again the scope was advanced distal and remaining transverse fibers were incised with the blade. The radial and ulnar leaflets were directly visualized and mobile consistant with complete release. Tenotomy scissors were then utilized to release the remaining distal forearm fascia under direct visualization taking care to preserve the palmar cutaneous branch of the median nerve. Transverse incision was made at the base of the thumb. Blunt dissection was taken down to the level of the A1 noel. Ragnell retractors were placed both radially and ulnarly to protect neurovascular bundles. Littler tenotomy scissors were then used to release the A1 noel from proximal to distal under direct visualization. Proximal fascial attachments were released. The tendon was then taken through range of motion and no locking or catching was appreciated. Skin closure was performed with interrupted 4-0 nylon suture at both the wrist and thumb. Sterile dressing was applied consisting of adaptic, 4x4s, Webril, and an jose bandage. Tourniquet was let down and the hand immediately was well perfused. The patient was then woken by the department of anesthesia and transferred to PACU in stable condition. Paul Grier D.O. Orthopedic Hand/Upper Extremity Surgeon
== END 2021-07-06 11:54 | disposition home or self-care (01) ==
LOC: OR 08:46
PROVIDERS: ATTEND Orthopaedic Surgery Hand Surgery
DX: G56.01 Carpal tunnel syndrome, right upper limb (principal); M65.312 Trigger thumb, left thumb; M65.311 Trigger thumb, right thumb
CPT/HCPCS: 29848; 26055; J2250; J1200; J1100; J1720; J2405; J2001; J3010; J2704

== ENCOUNTER → 2021-07-22 | Outpatient (CLI) | payer BC ==
[2021-07-22 13:21] VITALS: BP 126/84; PULSE 74; RESP 18; TEMP 98.1
--- NOTE | 2021-07-22 13:57 | P.GSHP ---
History of Present Illness H&P Date: 07/22/21 Chief Complaint: abnormal bilateral mammogram Pari is a 40 year old female seen in consultation for Dr. Chapin regarding a routine mammographic abnormality in both breast on bilateral mammogram done on 09-12-21. This led to a bilateral ultrasound of the breast on 07-05-21 for which a right breast core biopsy was recommended of a 0.7 by o.5 cm lesion. Patient is not complaining of any new lumps masses or nodules of concern in either breast. She is not complaining of any nipple discharge or skin changes. She states she has had a cyst in the right breast for many years which expresses that skin with the material and liquid when she squeezes it. That hasn't changed. She has not had any trouble recent trauma or infection in the breast. She's not had any breast surgery in the past. Caffeine: 2 cups/day nicotine; none chocolate: occasional Family History: maternal grandmother: colon cancer 2 maternal aunts: breast cancer ( in their 40's) maternal grandfather: colon cancer maternal cousin: leukemia 2 paternal great aunts: breast cancer Hormonal History: menarche: 10 [id number], breast fed: no, age at first : 22 periods: MICHAEL secondary to endometriosis and adenomyosis; hysterectomy at 33 BCP: 20 years stopped at 33 hormones: estradiol since 33 Surgical history: Left ovary and tube removed prior to Total abdominal hysterectomy at 33 two left shoulder right shoulder spinal fusion right hand and wrist left elbow right foot gallbladder Medical History: Fibromyalgia Social history: Caffeine: 2 cups per day Nicotine: Negative Chocolate: Negative Alcohol: Occasional Drugs: negative - Constitutional Constitutional: Denies chills, Denies fever - EENT Eyes: denies blurred vision, denies pain Ears: deny: decreased hearing, tinnitus Ears, nose, mouth and throat: Denies headache, Denies sore throat - Breasts Breasts: bilateral: as per HPI - Cardiovascular Cardiovascular: Denies chest pain, Denies shortness of breath - Respiratory Respiratory: Denies cough, Denies 7 - Gastrointestinal Comment: IBS constipation Gastrointestinal: Denies abdominal pain, Denies diarrhea, Denies nausea, Denies vomiting - Genitourinary (Female) Genitourinary: Denies dysuria, Denies hematuria - Menstruation Menstruation: Reports post hysterectomy - Musculoskeletal Musculoskeletal: Reports as per HPI - Integumentary Integumentary: Denies pruritus, Denies rash - Neurological Neurological: Denies numbness, Denies weakness - Psychiatric Psychiatric: Reports anxiety - Endocrine Endocrine: Denies fatigue, Denies weight change - Hematologic/Lymphatic Comment: none - Allergic/Immunologic Allergic/Immunologic: Reports seasonal allergies Past Medical History Past Medical History: Fibromyalgia History of Any Multi-Drug Resistant Organisms: None Reported Past Surgical History: Cholecystectomy, Hysterectomy, Orthopedic Surgery Additional Past Surgical History / Comment(s): right shoulder, right foot, left Oopherectomy, left shoulder, left elbow, right hand/wrist, spinal fusion Past Anesthesia/Blood Transfusion Reactions: No Reported Reaction Past Psychological History: Anxiety, Panic Disorder Smoking Status: Former smoker Past Alcohol Use History: Rare Past Drug Use History: None Reported - Past Family History Mother Family Medical History: Deep Vein Thrombosis (DVT) Medications and Allergies Home Medications Medication Instructions Recorded Confirmed Type Albuterol Inhaler (Mhu) [Ventolin 2 puff INHALATION DIRECTED PRN 06/26/16 0 07/22/21 History Hfa Inhaler] Estradiol [Estrace] 2 mg PO HS 06/26/16 07/22/21 History Acetaminophen [Tylenol Extra 1,000 mg PO DIRECTED PRN 07/04/21 07/22/21 History Strength] Amitriptyline HCl [Elavil] 10 mg PO HS 07/04/21 07/22/21 History Ergocalciferol [Vitamin D2 (1250 1,250 mcg PO DIRECTED 07/04/21 07/22/21 History Mcg = 87639 Iu)] Naproxen 375 mg PO ONCE PRN 07/04/21 07/22/21 History Phentermine HCl [Adipex-P] 37.5 mg PO DAILY 07/22/21 07/22/21 History Allergies Allergy/AdvReac Type Severity Reaction Status Date / Time adhesive Allergy Rash/Hives Verified 07/22/21 13:16 Anesthetics - Katie Type- Allergy Itching Verified 07/22/21 13:16 Parabens [Anesthetics - Katie Type] diclofenac [From Voltaren] Allergy Rash/Hives Verified 07/22/21 13:16 diclofenac sodium Allergy Rash/Hives Verified 07/22/21 13:16 [From Voltaren] erythromycin lactobionate Allergy Rash/Hives Verified 07/22/21 13:16 [From Erythrocin] Iodinated Contrast Media Allergy Rash/Hives Verified 07/22/21 13:16 [Iodinated Contrast Media - IV Dye] Surgical - Exam Vital Signs Temp Pulse Resp BP Pulse Ox 98.1 F 74 18 126/84 99 07/22/21 13:18 07/22/21 13:18 07/22/21 13:18 07/22/21 13:18 07/22/21 13:18 BMI 30.4 - General no distress - Eyes normal ocular movement - Neck trachea midline - Respiratory normal respiratory effort, clear to auscultation - Cardiovascular Rhythm: regular Heart Sounds: normal: S1, S2 - Abdomen Abdomen: soft, non tender, no guarding, no rigid, no rebound - Integumentary normal turgor Examination of the integument reveals multiple nevi over the upper torso with at least 2 darkened nevi at the area of the bra line and just inferior on the back - Musculoskeletal normal gait, normal posture - Psychiatric oriented to time, oriented to person, oriented to place, speech is normal, memory intact Breast Exam: BRA: 36D inspection: bilateral grade 2/3 ptosis palpation: right breast: Multiple positional exam fibrocystic changes no dominant masses or notch was of concern Right axilla: No adenopathy of concern Left breast: Multi-positional exam fibrocystic changes no dominant masses or nodules of concern Left axilla: No adenopathy of concern Results Mammogram and ultrasound reviewed Assessment and Plan Assessment: Impression: Fibrocystic breast changes Radiographic abnormality right breast for which ultrasound core biopsy is recommended Multiple nevi/2 dark ones on the bra line in the back and inferior to this Chronic Sharonda-Lechuga Fibromyalgia Plan: Ultrasound guided core biopsy right breast Follow-up after this and will schedule for excision of the nevi as noted above Cc: Dr. Chapin
== END ==
LOC: WWCWWP 12:59
PROVIDERS: ATTEND Surgery
DX: N60.11 Diffuse cystic mastopathy of right breast (principal); B27.00 Gammaherpesviral mononucleosis without complication; M79.7 Fibromyalgia; F41.0 Panic disorder [episodic paroxysmal anxiety]; Z87.891 Personal history of nicotine dependence; Z91.048 Other nonmedicinal substance allergy status; Z88.4 Allergy status to anesthetic agent; Z88.6 Allergy status to analgesic agent; Z88.1 Allergy status to other antibiotic agents; Z91.041 Radiographic dye allergy status

== ENCOUNTER → 2022-02-01 | Outpatient (CLI) | payer BC ==
--- NOTE | 2022-02-01 11:40 | MR ---
EXAMINATION TYPE: MR brain wo con DATE OF EXAM: 02/01/2022 COMPARISON: NONE HISTORY: Benign neoplasm pituitary TECHNIQUE: T1-weighted sagittal, T2, FLAIR, and diffusion axial, and T2 coronal coronal views of the brain are submitted. FINDINGS: There is no evidence of acute ischemia. The ventricles, basal cisterns, and sulci overlying the conv exities are consistent with the patient's age. There is no mass effect. Craniocervical junction maintained. Partially empty sella turcica noted. No cerebellopontine angle mass. Orbits are symmetric. Nasal septal deviation with mild changes of chr onic sinusitis. IMPRESSION: 1. Partially empty sella turcica with no diagnostic evidence of pituitary mass by MRI brain. If there is concern for a pituitary mass then a dedicated pituitary MRI can be obtained as clinically warrant ed.
== END | disposition home or self-care (01) ==
LOC: RADMRIMAIN 10:38
PROVIDERS: ATTEND Family Medicine
DX: D35.2 Benign neoplasm of pituitary gland (principal)
CPT/HCPCS: 70551

== ENCOUNTER 2022-02-27 15:25 | Emergency (ER) | payer BC ==
[2022-02-27 15:53] VITALS: BP 121/83; PULSE 76; RESP 20; TEMP 98.1
[2022-02-27] MEDS ORDERED: SODIUM CHLORIDE 0.9% 1,000 ML IV STA (20:02)
[2022-02-27] MEDS ORDERED: MORPHINE SULFATE 4 MG/ML SYRINGE IV STA (20:02)
[2022-02-27] MEDS ORDERED: ONDANSETRON 4 MG/2 ML VIAL IVP STA (20:02)
[2022-02-27 20:55] LABS: Basophils # (A) 0.1 k/uL (0-0.2); Basophils % (A) 1 %; Eosinophils # (A) 0.1 k/uL (0-0.7); Eosinophils % (A) 1 %; HCT 43.2 % (34.0-46.0); HGB 14.6 gm/dL (11.4-16.0); Lymphocytes # (A) 4.1 k/uL (1.0-4.8); Lymphocytes % (A) 44 %; MCH 30.5 pg (25.0-35.0); MCHC 33.9 g/dL (31.0-37.0); Mean Platelet Volume 8.4; Monocytes # (A) 0.4 k/uL (0-1.0); Monocytes % (A) 5 %; Neutrophils # (A) 4.4 k/uL (1.3-7.7); Neutrophils % (A) 48 %; Platelet Count 266 k/uL (150-450); RBC 4.81 m/uL (3.80-5.40); RDW 12.6 % (11.5-15.5); WBC 9.3 k/uL (3.8-10.6)
[2022-02-27 21:05] LABS: ALT 22 U/L (4-34); AST 29 U/L (14-36); African American GFR (CKD) >90 (>60 ml/min/1.73 sqM); Albumin 4.6 g/dL (3.5-5.0); Alkaline Phosphatase 67 U/L (38-126); Anion Gap 11 mmol/L; Blood Urea Nitrogen 15 mg/dL (7-17); Calcium 9.5 mg/dL (8.4-10.2); Carbon Dioxide 26 mmol/L (22-30); Chloride 101 mmol/L (98-107); Glucose 83 mg/dL (74-99); Lipase 107 U/L (23-300); Non-African American GFR(CKD) >90 (>60 ml/min/1.73 sqM); Potassium 4.2 mmol/L (3.5-5.1); Sodium 138 mmol/L (137-145); Total Bilirubin 0.4 mg/dL (0.2-1.3); Total Protein 7.4 g/dL (6.3-8.2)
[2022-02-27 21:10] LABS: Appearance,Urine Cloudy (Clear); Bacteria,Urine Rare /hpf; Bilirubin,Urine Negative (Negative); Blood,Urine Negative (Negative); Color,Urine Yellow; Glucose,Urine (UA) Negative (Negative); Ketones,Urine Negative (Negative); Leukocyte Esterase,Urine Negative (Negative); Mucus,Urine Many /hpf; Nitrite,Urine Negative (Negative); PH, Urine 5.5 (5.0-8.0); Protein,Urine Trace (Negative); RBC,Urine 21 /hpf (0-5); Specific Gravity,Urine 1.026 (1.001-1.035); Squamous Epithelial Cell,Urine 26 /hpf (0-4); Urobilinogen,Urine <2.0 mg/dL (<2.0); WBC,Urine <1 /hpf (0-5)
[2022-02-27] MEDS ORDERED: MORPHINE SULFATE 4 MG/ML SYRINGE IM STA (21:34)
[2022-02-27] MEDS ORDERED: ONDANSETRON ODT 4 MG TAB PO STA (21:34)
[2022-02-27] MEDS ORDERED: PROCHLORPERAZINE 5 MG TAB PO STA (21:36)
--- NOTE | 2022-02-27 22:04 | CT ---
EXAMINATION TYPE: CT abdomen pelvis wo con DATE OF EXAM: 02/27/2022 COMPARISON: 12/12/2013 HISTORY: Abdominal pain CT DLP: 1054.4 mGycm Automated exposure control for dose reduction was used. Images obtained from the diaphragm to the floor of the pelvis with no contrast. The lung bases are clear of consolidation. No pleural effusion. There is mild subsegmental atelectasi s left lung base. Heart is normal. Liver spleen pancreas and stomach appear intact. The bile ducts are not dilated. There are clips from cholecystectomy. There is no adrenal mass. Kidneys show satisfactory contrast opacification. There is no hydronephrosi s. Ureters are not dilated. No retroperitoneal adenopathy. Appendix is posterior and appears normal. The bladder distends smoothly. No inguinal hernia. No free fluid in the pelvis. This rods and screws fusing posteriorly the lumbar spine from L4 to S1. Lumbar vertebrae have normal alignment. No compression fracture. The bony pelvis is intact. The hip joints are intact. IMPRESSION: No acute abnormality of the abdomen and pelvis. Normal appendix. Minimal subsegmental atelectasis at the lung bases.
--- NOTE | 2022-02-27 22:07 | ED ---
Abdominal Pain HPI - General Chief Complaint: Abdominal Pain Stated Complaint: ABD Pain Time Seen by Provider: 02/27/22 19:51 Source: patient Mode of arrival: ambulatory Limitations: no limitations - History of Present Illness Initial Comments: She is a 41-year-old female presents to the emergency department with a chief complaint of abdominal pain. Patient states pain has been occurring intermittently for the past 3 days. Pain initially left-sided but is now right- sided. Patient reports nausea with a few episodes of vomiting, nonbloody. Denies fever, chills, chest pain, shortness of breath, diarrhea, blood in stool, constipation, burning with urination, blood in the urine. She states she went to [facility] this morning. States they obtained labs and then sent her home. She has history of cholecystectomy, and hysterectomy with bilateral oophorectomy. - Related Data Home Medications Medication Instructions Recorded Confirmed Albuterol Inhaler [Ventolin Hfa 2 puff INHALATION DIRECTED PRN 06/26/16 07/22/21 Inhaler] estradioL [Estrace] 2 mg PO HS 06/26/16 07/22/21 Acetaminophen [Tylenol Extra 1,000 mg PO DIRECTED PRN 07/04/21 07/22/21 Strength] Amitriptyline HCl [Elavil] 10 mg PO HS 07/04/21 07/22/21 Ergocalciferol [Vitamin D2 (1250 1,250 mcg PO DIRECTED 07/04/21 07/22/21 Mcg = 49869 Iu)] Naproxen 375 mg PO ONCE PRN 07/04/21 07/22/21 Phentermine HCl [Adipex-P] 37.5 mg PO DAILY 07/22/21 07/22/21 Previous Rx's Medication Instructions Recorded Ibuprofen [Motrin] 800 mg PO Q8H #21 tab 02/27/22 Ondansetron Odt [Zofran Odt] 4 mg PO Q8HR PRN #10 tab 02/27/22 Allergies Allergy/AdvReac Type Severity Reaction Status Date / Time adhesive Allergy Rash/Hives Verified 02/27/22 15:53 Anesthetics - Katie Type- Allergy Itching Verified 02/27/22 15:53 Parabens [Anesthetics - Katie Type] diclofenac [From Voltaren] Allergy Rash/Hives Verified 02/27/22 15:53 diclofenac sodium Allergy Rash/Hives Verified 02/27/22 15:53 [From Voltaren] erythromycin lactobionate Allergy Rash/Hives Verified 02/27/22 15:53 [From Erythrocin] Iodinated Contrast Media Allergy Rash/Hives Verified 02/27/22 15:53 [Iodinated Contrast Media - IV Dye] Review of Systems ROS Statement: Those systems with pertinent positive or pertinent negative responses have been documented in the HPI. ROS Other: All systems not noted in ROS Statement are negative. Past Medical History Past Medical History: Fibromyalgia History of Any Multi-Drug Resistant Organisms: None Reported Past Surgical History: Cholecystectomy, Hysterectomy, Orthopedic Surgery Additional Past Surgical History / Comment(s): right shoulder, right foot, left Oopherectomy, left shoulder, left elbow, right hand/wrist, spinal fusion Past Anesthesia/Blood Transfusion Reactions: No Reported Reaction Past Psychological History: Anxiety, Panic Disorder Smoking Status: Former smoker Past Alcohol Use History: Rare Past Drug Use History: None Reported - Past Family History Mother Family Medical History: Deep Vein Thrombosis (DVT) General Exam Limitations: no limitations General appearance: alert, in no apparent distress Respiratory exam: Present: normal lung sounds bilaterally. Absent: respiratory distress, wheezes, rales, rhonchi, stridor Cardiovascular Exam: Present: regular rate, normal rhythm, normal heart sounds. Absent: systolic murmur, diastolic murmur, rubs, gallop, clicks GI/Abdominal exam: Present: soft, tenderness (RLQ, mild ), normal bowel sounds. Absent: distended, guarding, rebound, rigid Course Vital Signs 02/27/22 15:51 Temperature 98.1 F Pulse Rate 76 Respiratory 20 Rate Blood Pressure 121/83 O2 Sat by Pulse 99 Oximetry Medical Decision Making - Medical Decision Making A 41-year-old female presenting with right lower quadrant pain, nausea, vomiting. Laboratory studies obtained. There is no leukocytosis. CBC and CMP are within normal limits. Urinalysis shows [address] of the abdomen and pelvis without contrast shows no acute abdomen amount of the abdomen and pelvis with a normal appendix. Pain and nausea controlled. Case discussed with patient. At this time there no diagnostic studies to explain patient's symptoms. Will discharge patient with Zofran and Motrin. She will follow-up with primary care provider and return if she experiences new, concerning, or worsening symptoms. Dr. Bear is my attending. - Lab Data Result diagrams: 02/27/22 20:22 02/27/22 20:22 Lab Results 02/27/22 02/27/22 02/27/22 Range/Units 20:22 20:22 20:22 WBC 9.3 (3.8-10.6) k/uL RBC 4.81 (3.80-5.40) m/uL Hgb 14.6 (11.4-16.0) gm/dL Hct 43.2 (34.0-46.0) % MCV 90.0 (80.0-100.0) fL MCH 30.5 (25.0-35.0) pg MCHC 33.9 (31.0-37.0) g/dL RDW 12.6 (11.5-15.5) % Plt Count 266 (150-450) k/uL MPV 8.4 Neutrophils % 48 % Lymphocytes % 44 % Monocytes % 5 % Eosinophils % 1 % Basophils % 1 % Neutrophils # 4.4 (1.3-7.7) k/uL Lymphocytes # 4.1 (1.0-4.8) k/uL Monocytes # 0.4 (0-1.0) k/uL Eosinophils # 0.1 (0-0.7) k/uL Basophils # 0.1 (0-0.2) k/uL Sodium 138 (137-145) mmol/L Potassium 4.2 (3.5-5.1) mmol/L Chloride 101 (98-107) mmol/L Carbon Dioxide 26 (22-30) mmol/L Anion Gap 11 mmol/L BUN 15 (7-17) mg/dL Creatinine 0.71 (0.52-1.04) mg/dL Est GFR (CKD-EPI)AfAm >90 (>60 ml/min/1.73 sqM) Est GFR (CKD-EPI)NonAf >90 (>60 ml/min/1.73 sqM) Glucose 83 (74-99) mg/dL Plasma Lactic Acid Ray (0.7-2.0) mmol/L Calcium 9.5 (8.4-10.2) mg/dL Total Bilirubin 0.4 (0.2-1.3) mg/dL AST 29 (14-36) U/L ALT 22 (4-34) U/L Alkaline Phosphatase 67 (38-126) U/L Total Protein 7.4 (6.3-8.2) g/dL Albumin 4.6 (3.5-5.0) g/dL Lipase 107 (23-300) U/L Urine Color Yellow Urine Appearance Cloudy H (Clear) Urine pH 5.5 (5.0-8.0) Ur Specific [place] 1.026 (1.001-1.035) Urine Protein Trace H (Negative) Urine Glucose (UA) Negative (Negative) Urine Ketones Negative (Negative) Urine Blood Negative (Negative) Urine Nitrite Negative (Negative) Urine Bilirubin Negative (Negative) Urine Urobilinogen <2.0 (<2.0) mg/dL Ur Leukocyte Esterase Negative (Negative) Urine RBC 21 H (0-5) /hpf Urine WBC <1 (0-5) /hpf Ur Squamous Epith Cells 26 H (0-4) /hpf Urine Bacteria Rare H (None) /hpf Urine Mucus Many H (None) /hpf 02/27/22 Range/Units 20:22 WBC (3.8-10.6) k/uL RBC (3.80-5.40) m/uL Hgb (11.4-16.0) gm/dL Hct (34.0-46.0) % MCV (80.0-100.0) fL MCH (25.0-35.0) pg MCHC (31.0-37.0) g/dL RDW (11.5-15.5) % Plt Count (150-450) k/uL MPV Neutrophils % % Lymphocytes % % Monocytes % % Eosinophils % % Basophils % % Neutrophils # (1.3-7.7) k/uL Lymphocytes # (1.0-4.8) k/uL Monocytes # (0-1.0) k/uL Eosinophils # (0-0.7) k/uL Basophils # (0-0.2) k/uL Sodium (137-145) mmol/L Potassium (3.5-5.1) mmol/L Chloride (98-107) mmol/L Carbon Dioxide (22-30) mmol/L Anion Gap mmol/L BUN (7-17) mg/dL Creatinine (0.52-1.04) mg/dL Est GFR (CKD-EPI)AfAm (>60 ml/min/1.73 sqM) Est GFR (CKD-EPI)NonAf (>60 ml/min/1.73 sqM) Glucose (74-99) mg/dL Plasma Lactic Acid Ray 1.1 (0.7-2.0) mmol/L Calcium (8.4-10.2) mg/dL Total Bilirubin (0.2-1.3) mg/dL AST (14-36) U/L ALT (4-34) U/L Alkaline Phosphatase (38-126) U/L Total Protein (6.3-8.2) g/dL Albumin (3.5-5.0) g/dL Lipase (23-300) U/L Urine Color Urine Appearance (Clear) Urine pH (5.0-8.0) Ur Specific [place] (1.001-1.035) Urine Protein (Negative) Urine Glucose (UA) (Negative) Urine Ketones (Negative) Urine Blood (Negative) Urine Nitrite (Negative) Urine Bilirubin (Negative) Urine Urobilinogen (<2.0) mg/dL Ur Leukocyte Esterase (Negative) Urine RBC (0-5) /hpf Urine WBC (0-5) /hpf Ur Squamous Epith Cells (0-4) /hpf Urine Bacteria (None) /hpf Urine Mucus (None) /hpf Disposition Clinical Impression: Abdominal pain, Nausea and vomiting Disposition: HOME SELF-CARE Condition: Good Instructions (If sedation given, give patient instructions): Abdominal Pain (ED) Additional Instructions: Take Tylenol for pain. Take Zofran as directed for nausea. Follow-up with primary care provider in one to 2 days. Return to emergency department experience new, concerning, or worsening symptoms. Prescriptions: Ibuprofen [Motrin] 800 mg PO Q8H #21 tab Ondansetron Odt [Zofran Odt] 4 mg PO Q8HR PRN #10 tab PRN Reason: Nausea Is patient prescribed a controlled substance at d/c from ED?: No Referrals: Carli Chapin DO [Primary Care Provider] - 1-2 days Time of Disposition: 22:07
== END 2022-02-27 22:31 | disposition home or self-care (01) ==
LOC: EC 15:25
DX: R10.31 Right lower quadrant pain (principal); R11.2 Nausea with vomiting, unspecified; Z87.891 Personal history of nicotine dependence; Z91.041 Radiographic dye allergy status; Z88.1 Allergy status to other antibiotic agents; Z88.6 Allergy status to analgesic agent; Z91.048 Other nonmedicinal substance allergy status
CPT/HCPCS: 36415; 80053; 83605; 83690; 85025; 81001; 74176; 99284; 96374; 96375; 96361; 96372; S0183; J2270; J2405

== ENCOUNTER → 2022-06-21 | Outpatient (CLI) | payer BC | END | disposition home or self-care (01) | LOC: RADNMMAIN 10:33 | PROVIDERS: ATTEND Orthopaedic Surgery | DX: Z53.9 Procedure and treatment not carried out, unspecified reason (principal) ==

== ENCOUNTER 2022-08-23 07:46 | Day surgery (SDC) | payer BC ==
--- NOTE | 2022-08-21 10:23 | P.HPOR ---
History of Present Illness H&P Date: 08/21/22 Chief Complaint: Left carpal tunnel syndrome, Left DeQuervains tenosynovitis Subjective: This is a 41 year old female that presents today for initial evaluation regarding a year history of progressively worsening left hand paresthesias in the thumb, index, middle and ring fingers. The patient has tried bracing and steroid injections for her DeQuervains back in November of 2021 and states she had a few weeks of relief but she now feels the hand is week and painful with any movement. The patient denies any inciting event or neck pain. Her numbness occurs daily. She responded well to a right carpal tunnel release in 2021 and has no complaints regarding the right hand/wrist. Physical Examination: LUE: AIN/PIN/Radial/Ulnar/Median motor intact. Radial/Ulnar/Median SILT. 2+/4 Radial/Ulnar pulses palpated. 5/5 APB, 5/5 FDI. Positive Finkelsteins, negative CMC grind, positive Durkan's compression. Impression: 1.) Left carpal tunnel syndrome 2.) Left DeQuervains tenosynovitis Plan: Diagnosis and treatment options were discussed with the patient. The patient has failed conservative treatment and would like to pursue a left endoscopic vs open carpal tunnel release with left first dorsal compartment release. Risks and benefits of surgery including bleeding, infection, damage to surrounding tissue, need for further surgery, possible need to convert to open procedure, residual numbness were discussed and the patient wished to go forward with surgery. I anticipate 4 weeks off work, this can be extended if needed at first post op appointment. -Paul Grier DO Orthopedic Hand/Upper Extremity Surgeon Past Medical History Past Medical History: Fibromyalgia History of Any Multi-Drug Resistant Organisms: None Reported Past Surgical History: Cholecystectomy, Hysterectomy, Orthopedic Surgery Additional Past Surgical History / Comment(s): right shoulder, right foot, left Oopherectomy, left shoulder, left elbow, right hand/wrist, spinal fusion Past Anesthesia/Blood Transfusion Reactions: No Reported Reaction Smoking Status: Former smoker - Past Family History Mother Family Medical History: Deep Vein Thrombosis (DVT) Medications and Allergies Home Medications Medication Instructions Recorded Confirmed Type estradioL [Estrace] 2 mg PO HS 06/26/16 07/20/22 History Phentermine HCl [Adipex-P] 37.5 mg PO DAILY 07/22/21 07/20/22 History Collagen Complex 1 dose PO DAILY 07/20/22 History HYDROcodone/APAP 5-325MG [[place] 1 tab PO BID PRN 07/20/22 07/20/22 History 5-325] Melatonin 5 mg PO HS PRN 07/20/22 07/20/22 History Vitamin C/Biotin [Hair, Skin and 1 tab PO DAILY 07/20/22 07/20/22 History Nails Chew] Allergies Allergy/AdvReac Type Severity Reaction Status Date / Time shellfish derived [Shellfish] Allergy Unknown Rash/Hives Verified 07/20/22 10:29 adhesive Allergy Rash/Hives Verified 07/20/22 10:11 Anesthetics - Katie Type- Allergy Itching Verified 07/20/22 10:11 Parabens [Anesthetics - Katie Type] diclofenac [From Voltaren] Allergy Rash/Hives Verified 07/20/22 10:11 diclofenac sodium Allergy Rash/Hives Verified 07/20/22 10:11 [From Voltaren] erythromycin lactobionate Allergy Rash/Hives Verified 07/20/22 10:11 [From Erythrocin] Iodinated Contrast Media Allergy Rash/Hives Verified 07/20/22 10:11 [Iodinated Contrast Media - IV Dye] x-ray contrast dye Allergy Unknown reaction Uncoded 07/20/22 10:28 to all contrast.rash/hives swelling of eyes. Physical Examination Osteopathic Statement: *. No significant issues noted on an osteopathic structural exam other than those noted in the History and Physical/Consult.
[2022-08-21 15:19] VITALS: BMI 36.0
[~2022-08-23 07:46] MED LIST changes: +LACTATED RINGERS 1,000 ML IV SCH; +LIDOCAINE 1% (10MG/ML) FOR IV START INTRADERMA PRN
[2022-08-23 08:23] VITALS: TEMP 98.8
[2022-08-23] MEDS ORDERED: ONDANSETRON 4 MG/2 ML VIAL ONE (08:39)
[2022-08-23] MEDS ORDERED: ONDANSETRON 4 MG/2 ML VIAL IVP ONE (08:40)
[2022-08-23] MEDS ORDERED: DEXAMETHASONE SOD PHOSPHATE 4 MG/ML 1 ML VIAL IVP ONE (08:40)
[2022-08-23] MEDS ORDERED: KETAMINE 10 MG/ML 20 ML VIAL ONE (09:12)
[2022-08-23] MEDS ORDERED: MIDAZOLAM 2 MG/2 ML VIAL ONE (09:12)
[2022-08-23] MEDS ORDERED: PROPOFOL 10 MG/ML 20 ML VIAL IV ONE (09:12)
[2022-08-23] MEDS ORDERED: fentaNYL (PF) 50 MCG/ML 2 ML AMP ONE (09:12)
[2022-08-23] MEDS ORDERED: LIDOCAINE 2% (PF) 20 MG/ML 10 ML AMP SQ ONE (09:20)
[2022-08-23] MEDS ORDERED: BUPIVACAINE (PF) 0.5% 30 ML VIAL SQ ONE (09:20)
--- NOTE | 2022-08-23 09:59 | P.OP ---
Date of Procedure: 08/23/22 Preoperative Diagnosis: 1.) Left carpal tunnel syndrome 2.) Left DeQuervains tenosynovitis Postoperative Diagnosis: 1.) Left carpal tunnel syndrome 2.) Left DeQuervains tenosynovitis Procedure(s) Performed: 1.) Left endoscopic carpal tunnel release 2.) Left first dorsal compartment release Anesthesia: MAC Surgeon: Paul Grier Fermentation Engineer #1: Kenny Villareal Estimated Blood Loss (ml): 0 Pathology: none sent Condition: stable Disposition: PACU Description of Procedure: This is a 41 year old female who presents today for a left endoscopic carpal tunnel release and left first dorsal compartment release after having failed conservative treatment in the past. Risks and benefits of surgery were discussed with the patient including bleeding, damage to surrounding tissue, infection, need to convert to open procedure, need for further surgery as well as risks of anesthesia including pulmonary embolism and even and the patient wished to proceed with surgical intervention. The patients was seen in the pre-operative area by myself. Consent and H&P were completed and updated. The correct extremity was marked in the pre-operative area by myself and all other questions were answered. Operative Narrative: The patient was brought to the operating room by the department of anesthesia. They remained on the portable stretcher and a rolling hand table was brought to the side of the operative extremity. Pre-operative time out was performed indicating the correct patient, procedure and laterality. All in the room agreed. The patient was then drifted off to sleep by the department of anesthesia. MAC anesthesia was utilized and a 50:50 mixture of 1% Lidocaine and 0.5% bupivacaine was injected into the subcutaneous tissues of the palmar and radial wrist skin, 10ccs total. A nonsterile tourniquet was then applied to the operative extremity and the left upper extremity was then prepped and draped in normal sterile fashion. The operative extremity was the exsanguinated with an esmarch bandage and the tourniquet was inflated to 250mmHg. 15 blade scalpel was utilized to make a transverse incision on the palmar skin just ulnar to the palmaris longus tendon at the level of the distal wrist crease. Ragnell retractor was then placed radially and blunt dissection was performed to reveal the distal forearm fascia. This was lifted with fine Reza pick ups and Littler tenotomy scissors were then used to open the forearm fascia transversely and a double skin hook was then placed. Hamate finder was placed into the carpal tunnel and then sequential sized dilators were inserted followed by the synovial elevator to separate the flexor tenosynovium from the undersurface of the transverse carpal ligament and a washboard texture was felt. The MicroAire endoscopic carpal tunnel release system gun was the then inserted into the carpal tunnel hugging the deep portion of the transverse carpal ligament in line with the base of the ring finger. Transverse fibers of the ligament were directly visualized. Pressure was applied on the palm to reveal the distal extent of the transverse carpal ligament. The blade was then deployed and the distal half of the transverse carpal ligament was released. The scope was then brought distal again and remaining transverse fibers were incised with the blade. The proximal half of the transverse carpal ligament was then divided and again the scope was advanced distal and remaining transverse fibers were incised with the blade. The radial and ulnar leaflets were directly visualized and mobile consistent with complete release. Tenotomy scissors were then utilized to release the remaining distal forearm fascia under direct visualization taking care to preserve the palmar cutaneous branch of the median nerve. 15 blade scalpel was used to make a horizontal skin incision centered over the first dorsal compartment of the left wrist. Blunt dissection was taken down to the proximal edge of the first dorsal compartment while taking care to identify and protect branches of the superficial radial sensory nerve. The first dorsal compartment was released in its entirety from proximal to distal. APL and EPB tendons were identified and a seperate compartment was present for the EPB tendon, this was also released. Skin closure was performed with interrupted 4-0 Monocryl suture followed by Mastisol and steri strips. Sterile dressing was applied consisting of 4x4s, Webril, and an jose bandage. Tourniquet was let down and the hand immediately was well perfused. The patient was then woken by the department of anesthesia and transferred to PACU in stable condition. Kenny DAVILA was present for the case in its entirety and assisted in major portions of the case and protection of vital neurovascular structures. Paul Grier D.O. Orthopedic Hand/Upper Extremity Surgeon
[2022-08-23 10:28] VITALS: BP 115/78; PULSE 78; RESP 18
== END 2022-08-23 10:54 | disposition home or self-care (01) ==
LOC: OR 07:46
PROVIDERS: ATTEND Orthopaedic Surgery Hand Surgery
DX: G56.02 Carpal tunnel syndrome, left upper limb (principal); M65.4 Radial styloid tenosynovitis [de Quervain]; M79.7 Fibromyalgia; Z98.890 Other specified postprocedural states; Z87.891 Personal history of nicotine dependence; Z79.899 Other long term (current) drug therapy; Z91.048 Other nonmedicinal substance allergy status; Z88.4 Allergy status to anesthetic agent; Z91.041 Radiographic dye allergy status; Z88.8 Allergy status to other drugs, medicaments and biological substances; Z88.1 Allergy status to other antibiotic agents
CPT/HCPCS: 29848; 25000; J2250; J1100; J2001; J2405; J3010; J2704

== ENCOUNTER → 2023-09-29 | Outpatient (CLI) | payer BC ==
--- NOTE | 2023-09-30 11:56 | MR ---
EXAMINATION TYPE: MR lumbar spine wo/w con DATE OF EXAM: 09/29/2023 2:27 PM CLINICAL INDICATION:Female, 43 years old with history of M48.061 SPINAL STENOSIS Z98.[address] ATUS; PHH, Low back pain that radiates down both legs, history of surgery. COMPARISON: None TECHNIQUE: Multi planar, multi sequence imaging was performed utilizing: T1-weighted, T2-weighted, a nd turbo inversion recovery imaging of the lumbar spine. IV Contrast: 10 cc Gadavist. (None if empty) FINDINGS: Alignment: The lumbar vertebral bodies have preserved heights and alignment. Cord: The conus medullaris and the distal spinal cord appear unremarkable with regards to their signa l intensity and morphology. No abnormal postcontrast enhancement. Bones/Discs: Postsurgical changes at L4-L5 and S1 with hardware with susceptibility artifact. There i s multilevel degeneration changes throughout the spine with joint space narrowing, osteophyte ration present. No abnormal postcontrast enhancement. T12-L1: No evidence of significant spinal canal stenosis or neural foraminal stenosis. L1-L2: No evidence of significant spinal canal stenosis or neural foraminal stenosis. L2-L3: No evidence of significant spinal canal stenosis or neural foraminal stenosis. L3-L4: Disc bulge and facet joint arthropathy result in mild to moderate spinal canal and moderate bi lateral neural foraminal stenosis. L4-L5: Susceptibility artifact limits evaluation at this level the spinal canal and neural foramen ap pear patent. L5-S1: Susceptibility artifact limits evaluation at this level the spinal canal and neural foramen ap pear patent. No significant spinal canal or neural foraminal stenosis in the remainder of the visualized levels. Other findings: None. IMPRESSION: 1. Postsurgical changes with patent spinal canal and neural foramen. No definitive evidence of disc herniation or significant spinal canal stenosis. No abnormal postcontrast enhancement. 2. Moderate disc degeneration with associated osteoarthritic changes neural foraminal stenosis worse at L3-L4 bilaterally with moderate bilateral no foraminal stenosis.
== END | disposition home or self-care (01) ==
LOC: RADMRIMAIN 13:15
PROVIDERS: ATTEND Orthopaedic Surgery
DX: M51.36 Other intervertebral disc degeneration, lumbar region (principal); M99.73 Connective tissue and disc stenosis of intervertebral foramina of lumbar region; M47.816 Spondylosis without myelopathy or radiculopathy, lumbar region; M48.061 Spinal stenosis, lumbar region without neurogenic claudication; Z98.1 Arthrodesis status
CPT/HCPCS: 72158; A9585

== ENCOUNTER → 2023-11-16 | Outpatient (CLI) | payer BC ==
[2023-11-16 12:03] LABS: INR 0.9 (<1.2); Partial Thromboplastin Time 25.2 sec (22.0-30.0); Prothrombin Time 10.1 sec (10.0-12.5)
[2023-11-16 17:06] LABS: Appearance,Urine Clear (Clear); Bilirubin,Urine Negative (Negative); Blood,Urine Negative (Negative); Color,Urine Yellow (Yellow); Ketones,Urine Negative (Negative); Nitrite,Urine Negative (Negative); Specific Gravity,Urine 1.009 (1.001-1.030); Urobilinogen,Urine 0.2 E.U./DL
[2023-11-16 17:17] LABS: Basophils # (A) 0.03 X 10*3/uL (0.00-0.10); Basophils % (A) 0.5 %; Eosinophils # (A) 0.06 X 10*3/uL (0.04-0.35); HCT 44.7 % (37.2-46.3); HGB 14.5 g/dL (12.0-15.0); Lymphocytes # (A) 2.61 X 10*3/uL (0.90-5.00); Lymphocytes % (A) 42.9 %; MCH 30.2 pg (27.0-32.0); MCHC 32.4 g/dL (32.0-37.0); MCV 93.1 FL (80.0-97.0); Mean Platelet Volume 10.5 FL (9.5-12.2); Monocytes # (A) 0.39 X 10*3/uL (0.20-1.00); Monocytes % (A) 6.4 %; NRBC Per 100 WBC 0 X 10*3/uL (0.00-0.01); Neutrophils # (A) 2.97 X 10*3/uL (1.80-7.70); Neutrophils % (A) 48.9 %; Platelet Count 238 X 10*3/uL (140-440); RDW 14.2 % (11.5-14.5); WBC 6.08 X 10*3/uL (4.50-10.00)
[2023-11-16 17:44] LABS: ALT 21 U/L (8-44); AST 17 U/L (13-35); Albumin 4.5 g/dL (3.8-4.9); Albumin/Globulin Ratio 1.67 Ratio (1.60-3.17); Alkaline Phosphatase 51 U/L (41-126); BUN/Creat Ratio 9.29 Ratio (12.00-20.00); Blood Urea Nitrogen 6.5 mg/dL (9.0-27.0); Calcium 9.3 mg/dL (8.7-10.3); Carbon Dioxide 23.8 mmol/L (21.6-31.8); Chloride 104 mmol/L (96-109); Globulin 2.7 g/dL (1.6-3.3); Glucose 89 mg/dL (70-110); Potassium 3.9 mmol/L (3.5-5.5); Sodium 141 mmol/L (135-145); Total Bilirubin 0.2 mg/dL (0.3-1.2); Total Protein 7.2 g/dL (6.2-8.2)
== END | disposition home or self-care (01) ==
LOC: LABWHC1 10:47
PROVIDERS: ATTEND Orthopaedic Surgery
DX: Z01.812 Encounter for preprocedural laboratory examination (principal); Z13.1 Encounter for screening for diabetes mellitus; D68.9 Coagulation defect, unspecified
CPT/HCPCS: 36415; 80053; 81003; 83036; 85025; 85610; 85730; 86850; 86900; 86901; 87070; 87086

== ENCOUNTER → 2024-04-03 | Outpatient (CLI) | payer BC ==
[2024-04-03 09:59] VITALS: BP 149/95; PULSE 98; RESP 17; TEMP 98.3
--- NOTE | 2024-04-03 10:30 | P.PN ---
Subjective Progress Note Date: 04/03/24 Principal diagnosis: fibrocystic breast disease/ questionable sebacous cyst right breast History of Present Illness H&P Date: 04-03-24 Chief Complaint: abnormal bilateral mammogram Pari is a 40 year old female seen in consultation for Dr. Chapin on 07-22-21 regarding a routine mammographic abnormality in both breast on bilateral mammogram done on 09-12-21. This led to a bilateral ultrasound of the breast on 07-05-21 for which a right breast core biopsy was recommended of a 0.7 by o.5 cm lesion. Patient is not complaining of any new lumps masses or nodules of concern in either breast. She is not complaining of any nipple discharge or skin changes. She states she has had a cyst in the right breast for many years which expresses that skin with the material and liquid when she squeezes it. That hasn't changed. She has not had any trouble recent trauma or infection in the breast. She's not had any breast surgery in the past. The lesion in the right breast was directly under the skin and was concerned by Dr. Rodriguez it may be a sebacous cyst. Therefore resection in the OR recommended, she did not have this done. She states the area got big about sive of a 50 cent piece and she squeezed it a week ago and counted white and yellow fluid came out. The area is now tender and still present. She states she has had a low grade fever. Caffeine: 2 cups/day nicotine; none chocolate: occasional Family History: maternal grandmother: colon cancer 2 maternal aunts: breast cancer ( in their 40's) maternal grandfather: colon cancer maternal cousin: leukemia 2 paternal great aunts: breast cancer Hormonal History: menarche: 10 [id number], breast fed: no, age at first : 22 periods: MICHAEL secondary to endometriosis and adenomyosis; hysterectomy at 33 BCP: 20 years stopped at 33 hormones: estradiol since 33 Surgical history: Left ovary and tube removed prior to Total abdominal hysterectomy at 33 two left shoulder right shoulder spinal fusion right hand and wrist left elbow right foot gallbladder right knee replacement spinal fusion (second L1 to S1) Medical History: Fibromyalgia spinal stenosis Social history: Caffeine: 2 cups per day Nicotine: Negative Chocolate: Negative Alcohol: Occasional Drugs: negative - Constitutional Constitutional: Denies chills, Denies fever - EENT Eyes: denies blurred vision, denies pain Ears: deny: decreased hearing, tinnitus Ears, nose, mouth and throat: Denies headache, Denies sore throat - Breasts Breasts: bilateral: as per HPI - Cardiovascular Cardiovascular: Denies chest pain, Denies shortness of breath - Respiratory Respiratory: Denies cough - Gastrointestinal Comment: IBS constipation Gastrointestinal: Denies abdominal pain, Denies diarrhea, Denies nausea, Denies vomiting - Genitourinary (Female) Genitourinary: Denies dysuria, Denies hematuria - Menstruation Menstruation: Reports post hysterectomy - Musculoskeletal Musculoskeletal: Reports as per HPI - Integumentary Integumentary: Denies pruritus, Denies rash - Neurological Neurological: Denies numbness, Denies weakness - Psychiatric Psychiatric: Reports anxiety - Endocrine Endocrine: Denies fatigue, Denies weight change - Hematologic/Lymphatic Comment: none - Allergic/Immunologic Allergic/Immunologic: Reports seasonal allergies Past Medical History Past Medical History: Fibromyalgia History of Any Multi-Drug Resistant Organisms: None Reported Past Surgical History: Cholecystectomy, Hysterectomy, Orthopedic Surgery Additional Past Surgical History / Comment(s): right shoulder, right foot, left Oopherectomy, left shoulder, left elbow, right hand/wrist, spinal fusion Past Anesthesia/Blood Transfusion Reactions: No Reported Reaction Past Psychological History: Anxiety, Panic Disorder Smoking Status: Former smoker Past Alcohol Use History: Rare Past Drug Use History: None Reported - Past Family History Mother Family Medical History: Deep Vein Thrombosis (DVT) Medications and Allergies Home Medications Medication Instructions Recorded Confirmed Type Albuterol Inhaler (Mhu) [Ventolin 2 puff INHALATION DIRECTED PRN 06/26/16 07/22/21 History Hfa Inhaler] Estradiol [Estrace] 2 mg PO HS 06/26/16 07/22/21 History Acetaminophen [Tylenol Extra 1,000 mg PO DIRECTED PRN 07/04/21 07/22/21 History Strength] Amitriptyline HCl [Elavil] 10 mg PO HS 07/04/21 07/22/21 History Ergocalciferol [Vitamin D2 (1250 1,250 mcg PO DIRECTED 07/04/21 07/22/21 History Mcg = [id number] Iu)] Naproxen 375 mg PO ONCE PRN 07/04/21 07/22/21 History Phentermine HCl [Adipex-P] 37.5 mg PO DAILY 07/22/21 07/22/21 History Allergies Allergy/AdvReac Type Severity Reaction Status Date / Time adhesive Allergy Rash/Hives Verified 07/22/21 13:16 Anesthetics - Katie Type- Allergy Itching Verified 07/22/21 13:16 Parabens [Anesthetics - Katie Type] diclofenac [From Voltaren] Allergy Rash/Hives Verified 07/22/21 13:16 diclofenac sodium Allergy Rash/Hives Verified 07/22/21 13:16 [From Voltaren] erythromycin lactobionate Allergy Rash/Hives Verified 07/22/21 13:16 [From Erythrocin] Iodinated Contrast Media Allergy Rash/Hives Verified 07/22/21 13:16 [Iodinated Contrast Media - IV Dye] Objective - Vital Signs Vital signs: Vital Signs Temp 98.3 F 04/03/24 09:57 Pulse 98 04/03/24 09:57 Resp 17 04/03/24 09:57 BP 149/95 04/03/24 09:57 Pulse Ox 97 04/03/24 09:57 FiO2 Intake & Output 04/02/24 04/03/24 04/03/24 18:59 06:59 18:59 Weight 102.058 kg - Constitutional General appearance: Present: cooperative - EENT Eyes: Present: EOMI ENT: Present: hearing grossly normal - Neck Neck: Present: normal ROM - Respiratory Respiratory: bilateral: CTA - Cardiovascular Rhythm: regular Heart sounds: normal: S1, S2 - Integumentary Integumentary: Present: normal turgor - Musculoskeletal Musculoskeletal: Present: gait normal - Psychiatric Psychiatric: Present: A&O x's 3, appropriate affect, intact judgment & insight - Additional findings Additional findings: Breast Exam: BRA: 36D inspection: bilateral grade 2/3 ptosis palpation: right breast: Multiple positional exam fibrocystic changes; small nodule at the upper inner aspect of the breast from which she states that the drainage occurred Right axilla: No adenopathy of concern Left breast: Multi-positional exam fibrocystic changes no dominant masses or nodules of concern Left axilla: No adenopathy of concern Dark nevi 1 on the left lower back and 1 on the right lateral bra line, multiple nevi otherwise over her torso Assessment and Plan Assessment: Impression: Fibrocystic breast changes Multiple nevi/2 dark ones on the bra line in the back both right and left side Chronic Sharonda-Lechuga Fibromyalgia Sebaceous cyst right breast which has partially drained Plan: BiLateral breast mammogram Right breast ultrasound at the area of the prior lesion Patient of the dark nevi on the back Excision of the probable sebaceous cyst in the operating room to be further evaluated after radiographic studies Cc: Dr. Chapin
== END ==
LOC: WWCWWP 09:31
PROVIDERS: ATTEND Surgery
DX: D22.5 Melanocytic nevi of trunk (principal); N60.31 Fibrosclerosis of right breast; N60.32 Fibrosclerosis of left breast; M79.7 Fibromyalgia; B27.00 Gammaherpesviral mononucleosis without complication; N60.81 Other benign mammary dysplasias of right breast; R92.8 Other abnormal and inconclusive findings on diagnostic imaging of breast; Z87.891 Personal history of nicotine dependence; Z91.013 Allergy to seafood; Z88.6 Allergy status to analgesic agent; Z88.8 Allergy status to other drugs, medicaments and biological substances; Z91.041 Radiographic dye allergy status; Z91.048 Other nonmedicinal substance allergy status; Z88.4 Allergy status to anesthetic agent